=== PATIENT | female | born 1945 | race Caucasian/White ===

== ENCOUNTER 2017-02-03 14:47 | Emergency (ER) | payer OTHER ==
[~2017-02-03] VITALS: Ht 170.2 cm; Wt 75.0 kg
[~2017-02-03 14:47] MED LIST: BACL10TA PO; CYCL1TAB29 PO; DICY10CA12 PO; LEVO75TA3 PO; MOBI15TA PO; PERC5TAB12 PO; PROZ20CA11 PO; REST15CA PO; ZOFR4TAB PO; ZOVI400T PO
[2017-02-03 14:50] VITALS: BP 99/64; PULSE 84; RESP 18; TEMP 97.7; O2SAT 98
[2017-02-03 15:20] VITALS: BP 108/62; PULSE 74; RESP 18; TEMP 98; O2SAT 95
[2017-02-03] MEDS ORDERED: PANC1CAP9 PO (15:24)
[2017-02-03] MEDS ORDERED: SODIUM CHLORIDE 0.9% FLUSH 10 ML FLUSH IV FLUSH PRN (15:30)
--- NOTE | 2017-02-03 15:33 | PD ---
HPI Chief Complaint: Abdominal Pain Time Seen by Provider: 15:13 Travel History International Travel<30 days: No Contact w/Intl Traveler<30days: No Traveled to known affect area: No History of Present Illness HPI The patient was seen and examined in the presence of the nurse. She complains of abdominal pain. Also has some low back pain. Patient has had flares of these same symptoms for very long time. She's had extensive multiple workups that different centers. Recently hospitalized at [place] for the same. She's been to [facility]. She says she does not know why she has these pain spells. They usually resolve in a couple of days. She is on chronic narcotics from pain management for arthritis problems. Symptoms moderately severe. No alleviating factors. No fever or vomiting or diarrhea. PFSH Past Medical History Arthritis: Yes Autoimmune Disease: No Blood Disorders: No Anxiety: Yes Depression: Yes Heart Rhythm Problems: Yes (PT REPORTS HX OF ARRYTHMIAS) Cancer: No Cardiovascular Problems: Yes (ARRYTHMIA) High Cholesterol: Yes Chest Pain: No Congestive Heart Failure: No Cerebrovascular Accident: No Diabetes: Yes Patient Takes Glucophage: No Diminished Hearing: No Endocrine: Yes Gastrointestinal Disorders: Yes (HX REFLUX, BOWEL OBSTRUCTION, POST GASTRIC BYPASS) GERD: No Genitourinary: Yes (MORE FREQUENT UTI) Hepatitis: No Hiatal Hernia: Yes (REPAIRED X 2 BUT RECURRED) Immune Disorder: No Implanted Vascular Access Dvce: Yes Kidney Stones: Yes Musculoskeletal: Yes (ARTHRITIS, NECK PROBLEMS) Neurologic: Yes (NUMBNESS/TINGLING L LEG, HANDS AND FOOT) Psychiatric: Yes Reproductive: No Respiratory: Yes (PREVIOUS SLEEP APNEA PRIOR TO GASTRIC BYPASS) Immunizations Current: Yes Migraines: Yes Seizures: No Thyroid Disease: Yes Ulcer: No Influenza Vaccination: Yes PNEUMOCCOCAL Vaccine (Year): 1 ?: Not Menopausal: Yes Past Surgical History Abdominal Surgery: Yes (GASTRIC BYPASS 2006, CHOLECYSTECTOMY 2011) AICD: No Arteriovenous Shunt: No Body Medical Devices: LEFT KNEE REPLACEMENT Cardiac Surgery: No Cholecystectomy: Yes (December-DR. GARCIA) Ear Surgery: No Endocrine Surgery: No Eye Surgery: No Genitourinary Surgery: No Gynecologic Surgery: No Hysterectomy: Yes Insulin Pump: No Joint Replacement: Yes (L KNEE) Oral Surgery: No Pacemaker: No Thoracic Surgery: No Other Surgery: Yes (R GREAT TOE ) Social History Alcohol Use: No Tobacco Use: No Substance Use: No Allergies-Medications (Allergen,Severity, Reaction): Coded Allergies: Enalapril (Verified Allergy, Severe, COUGHING, 02/03/17) Reported Meds & Prescriptions Reported Meds & Active Scripts Active Reported Zenpep (Pancrelipase) 40,000-136,000-218,000 Units Cap 1 Cap PO TIDPC Zovirax (Acyclovir) 400 Mg Tab 400 Mg PO BID Zofran (Ondansetron HCl) 4 Mg Tab 4 Mg PO Q6HR PRN Restoril (Temazepam) 15 Mg Cap 15 Mg PO HS PRN Prozac (Fluoxetine HCl) 20 Mg Cap 20 Mg PO DAILY Percocet (Oxycodone-Acetaminophen) 5-325 mg Tab 1 Tab PO Q4H PRN Levothyroxine (Levothyroxine Sodium) 75 Mcg Tab 75 Mcg PO DAILY Baclofen 10 Mg Tab 10 Mg PO TID Review of Systems General / Constitutional: No: Fever Eyes: No: Visual changes HENT: No: Headaches Cardiovascular: No: Chest Pain or Discomfort Respiratory: No: Shortness of Breath Gastrointestinal: Positive: Abdominal Pain Genitourinary: No: Dysuria Musculoskeletal: Positive: Pain Skin: No Rash Neurologic: No: Weakness Psychiatric: No: Depression Endocrine: No: Polydipsia Hematologic/Lymphatic: No: Easy Bruising Physical Exam Narrative GENERAL: Well-nourished, well-developed patient in no apparent distress. SKIN: Focused skin assessment reveals no rash and nodules. Skin is Warm and dry. HEAD: Atraumatic. Normocephalic. EYES: Pupils equal and round. No scleral icterus. No injection or drainage. ENT: No nasal bleeding or discharge. Mucous membranes pink and moist. NECK: Trachea midline. No JVD. CARDIOVASCULAR: Regular rate and rhythm. No murmur appreciated. RESPIRATORY: No accessory muscle use. Clear to auscultation. Breath sounds equal bilaterally. GASTROINTESTINAL: Abdomen soft, non-tender, nondistended. Hepatic and splenic margins not palpable. MUSCULOSKELETAL: No obvious deformities. No clubbing. No cyanosis. No edema. NEUROLOGICAL: Awake and alert. No obvious cranial nerve deficits. Motor grossly within normal limits. Normal speech. PSYCHIATRIC: Appropriate mood and affect; insight and judgment normal. Data Data Last Documented VS Vital Signs Date Time Temp Pulse Resp B/P Pulse Ox O2 Delivery O2 Flow Rate FiO2 02/03/17 15:20 98.0 74 18 108/62 95 Room Air Orders Complete Blood Count With Diff (02/03/17 15:26) Comprehensive Metabolic Panel (02/03/17 15:26) Lipase (02/03/17 15:26) Iv Access Insert/Monitor (02/03/17 15:26) Sodium Chloride 0.9% Flush (Ns Flush) (02/03/17 15:30) Labs Laboratory Tests Test 02/03/17 15:30 White Blood Count 5.4 TH/MM3 Red Blood Count 4.95 MIL/MM3 Hemoglobin 15.1 GM/DL Hematocrit 45.6 % Mean Corpuscular Volume 92.1 FL Mean Corpuscular Hemoglobin 30.4 PG Mean Corpuscular Hemoglobin 33.0 % Concent Red Cell Distribution Width 14.1 % Platelet Count 237 TH/MM3 Mean Platelet Volume 8.6 FL Neutrophils (%) (Auto) 58.4 % Lymphocytes (%) (Auto) 29.3 % Monocytes (%) (Auto) 7.1 % Eosinophils (%) (Auto) 4.5 % Basophils (%) (Auto) 0.7 % Neutrophils # (Auto) 3.1 TH/MM3 Lymphocytes # (Auto) 1.6 TH/MM3 Monocytes # (Auto) 0.4 TH/MM3 Eosinophils # (Auto) 0.2 TH/MM3 Basophils # (Auto) 0.0 TH/MM3 CBC Comment DIFF FINAL Differential Comment Sodium Level 142 MEQ/L Potassium Level 4.1 MEQ/L Chloride Level 106 MEQ/L Carbon Dioxide Level 28.7 MEQ/L Anion Gap 7 MEQ/L Blood Urea Nitrogen 13 MG/DL Creatinine 0.70 MG/DL Estimat Glomerular Filtration 82 ML/MIN Rate Random Glucose 100 MG/DL Calcium Level 9.1 MG/DL Total Bilirubin 0.3 MG/DL Aspartate Amino Transf 23 U/L (AST/SGOT) Alanine Aminotransferase 29 U/L (ALT/SGPT) Alkaline Phosphatase 88 U/L Total Protein 6.9 GM/DL Albumin 3.6 GM/DL Lipase 71 U/L [facility] Medical Decision Making Medical Screen Exam Complete: Yes Emergency Medical Condition: Yes Medical Record Reviewed: Yes Differential Diagnosis Chronic pain, narcotic withdrawal, irritable bowel syndrome Narrative Course I have reviewed the patient's electronic medical record. He seen her multiple times for abdominal pain. 3 CT scans in the last year have been done IV placed CBC is normal Metabolic profile is normal LFTs are normal Lipase is normal I gave her dose of morphine and Zofran for symptom relief She is stable for outpatient follow-up with normal labs and normal vitals and a soft benign nontender abdomen Diagnosis Primary Impression: Abdominal pain in female Additional Instructions: The patient was advised to follow up with their physician and return if they worsen. Med/Other Pt SpecificInfo: Other Disposition: 01 DISCHARGE HOME Condition: Stable Tom Conley MD Feb 03, 2017 15:33
[2017-02-03 15:50] LABS: AUTOMATED NEUTROPHIL # 3.1 TH/MM3 (1.8-7.7); BASOPHIL % 0.7 % (0.0-2.0); EOSINOPHIL # 0.2 TH/MM3 (0-0.4); EOSINOPHIL % 4.5 % (0.0-4.0); HEMATOCRIT 45.6 % (35.0-46.0); HEMO FLAGS DIFF FINAL; LYMPH % 29.3 % (9.0-44.0); LYMPHOCYTE # 1.6 TH/MM3 (1.0-4.8); MEAN CELL VOLUME 92.1 FL (80.0-100.0); MEAN CORPUSCULAR HEMOGLOBIN 30.4 PG (27.0-34.0); MONO % 7.1 % (0.0-8.0); NEUT % 58.4 % (16.0-70.0); PLATELET COUNT 237 TH/MM3 (150-450); RED BLOOD COUNT 4.95 MIL/MM3 (4.00-5.30); RED CELL DISTRIBUTION WIDTH 14.1 % (11.6-17.2); WHITE BLOOD COUNT 5.4 TH/MM3 (4.0-11.0)
[2017-02-03 16:09] LABS: ALT (GPT) 29 U/L (10-53); ANION GAP 7 MEQ/L (5-15); AST (GOT) 23 U/L (15-37); BICARBONATE 28.7 MEQ/L (21.0-32.0); BLOOD UREA NITROGEN 13 MG/DL (7-18); CHLORIDE 106 MEQ/L (98-107); GLOMERULAR FILTRATION RATE 82 ML/MIN (>89); POTASSIUM 4.1 MEQ/L (3.5-5.1); SODIUM (NA) 142 MEQ/L (136-145)
[2017-02-03 16:11] LABS: ALKALINE PHOSPHATASE 88 U/L (45-117); TOTAL BILIRUBIN ADULT 0.3 MG/DL (0.2-1.0)
[2017-02-03] MEDS ORDERED: ONDANSETRON HCL 4 MG/2 ML VIAL IV ONE (16:45)
[2017-02-03] MEDS ORDERED: MORPHINE SULFATE 4 MG/ML INJ IV PUSH ONE (16:45)
[2017-02-03 16:50] VITALS: BP 121/57; PULSE 68; RESP 18; O2SAT 97
== END 2017-02-03 17:20 | disposition home or self-care (01) ==
LOC: NEPE 14:47
DX: R10.9 Unspecified abdominal pain (principal); M54.5 Low back pain
CPT/HCPCS: 80053; 83690; 85025; 96374; 96375; 99284; J2270; J2405

== ENCOUNTER 2017-02-03 19:37 | Observation (INO) | payer OTHER ==
[~2017-02-03] VITALS: Ht 170.2 cm; Wt 77.4 kg
[~2017-02-03 19:37] MED LIST changes: +PANC1CAP9 PO
[2017-02-03 19:44] VITALS: BP 121/68; PULSE 75; RESP 22; TEMP 98.1; O2SAT 99
--- NOTE | 2017-02-03 20:14 | PD ---
HPI Chief Complaint: GI Complaint Time Seen by Provider: 19:59 Travel History International Travel<30 days: No Contact w/Intl Traveler<30days: No Traveled to known affect area: No History of Present Illness HPI This 72-year-old female is complaining of abdominal pain. She's been having recurring bouts of abdominal pain for about 7 years. The attacks are quite severe. They started in the back and they radiate to the front. She has been admitted several times for them and has had multiple CAT scans. She has had various diagnoses including kidney stones, UTI, bowel obstruction. She was admitted at the hospital in [place] in December and the oven unloader they're told that she had pancreatic cancer. She has followed up with her oven unloader Dr. Castaneda and he has done an MRCP and told that she did not have pancreatic cancer. She went to [facility] earlier today because of this pain. Her lab work was unremarkable and she was given an injection of morphine and released. She says that when she got home she started having severe pain again. She says she used to get the episodes very sporadically maybe once every few months. The last few weeks she been having them almost every week. She was able to handle him at home with oral Percocet that did not work today [facility] Past Medical History Arthritis: Yes Autoimmune Disease: No Blood Disorders: No Anxiety: Yes Depression: Yes Heart Rhythm Problems: Yes (PT REPORTS HX OF ARRYTHMIAS) Cancer: No Cardiovascular Problems: Yes (ARRYTHMIA) High Cholesterol: Yes Chest Pain: No Congestive Heart Failure: No Cerebrovascular Accident: No Diabetes: Yes Patient Takes Glucophage: No Diminished Hearing: No Endocrine: Yes Gastrointestinal Disorders: Yes (HX REFLUX, BOWEL OBSTRUCTION, POST GASTRIC BYPASS) GERD: No Genitourinary: Yes (MORE FREQUENT UTI) Hepatitis: No Hiatal Hernia: Yes (REPAIRED X 2 BUT RECURRED) Immune Disorder: No Implanted Vascular Access Dvce: Yes Kidney Stones: Yes Musculoskeletal: Yes (ARTHRITIS, NECK PROBLEMS) Neurologic: Yes (NUMBNESS/TINGLING L LEG, HANDS AND FOOT) Psychiatric: Yes Reproductive: No Respiratory: Yes (PREVIOUS SLEEP APNEA PRIOR TO GASTRIC BYPASS) Immunizations Current: Yes Migraines: Yes Seizures: No Thyroid Disease: Yes Ulcer: No PNEUMOCCOCAL Vaccine (Year): 1 ?: Not Menopausal: Yes Past Surgical History Abdominal Surgery: Yes (GASTRIC BYPASS 2006, CHOLECYSTECTOMY 2011) AICD: No Arteriovenous Shunt: No Body Medical Devices: LEFT KNEE REPLACEMENT Cardiac Surgery: No Cholecystectomy: Yes (December-DR. GARCIA) Ear Surgery: No Endocrine Surgery: No Eye Surgery: No Genitourinary Surgery: No Gynecologic Surgery: No Hysterectomy: Yes Insulin Pump: No Joint Replacement: Yes (L KNEE) Oral Surgery: No Pacemaker: No Thoracic Surgery: No Other Surgery: Yes (R GREAT TOE ) Social History Alcohol Use: No Tobacco Use: No Substance Use: No Allergies-Medications (Allergen,Severity, Reaction): Coded Allergies: Enalapril (Verified Allergy, Severe, COUGHING, 02/03/17) Reported Meds & Prescriptions Reported Meds & Active Scripts Active Reported Zenpep (Pancrelipase) 40,000-136,000-218,000 Units Cap 1 Cap PO TIDPC Zovirax (Acyclovir) 400 Mg Tab 400 Mg PO BID Zofran (Ondansetron HCl) 4 Mg Tab 4 Mg PO Q6HR PRN Restoril (Temazepam) 15 Mg Cap 15 Mg PO HS PRN Prozac (Fluoxetine HCl) 20 Mg Cap 20 Mg PO DAILY Percocet (Oxycodone-Acetaminophen) 5-325 mg Tab 1 Tab PO Q4H PRN Levothyroxine (Levothyroxine Sodium) 75 Mcg Tab 75 Mcg PO DAILY Baclofen 10 Mg Tab 10 Mg PO TID Review of Systems General / Constitutional: No: Fever, Chills Eyes: No: Diploplia, Blurred Vision HENT: No: Headaches, Vertigo Cardiovascular: No: Chest Pain or Discomfort, Palpitations Respiratory: No: Cough, Shortness of Breath Gastrointestinal: Positive: Abdominal Pain, No: Vomiting, Diarrhea, Hematochezia Genitourinary: No: Urgency, Frequency Musculoskeletal: No: Myalgias Skin: No Rash Physical Exam Narrative GENERAL: Patient does appear uncomfortable with the pain SKIN: Focused skin assessment warm/dry. HEAD: Atraumatic. Normocephalic. EYES: Pupils equal and round. No scleral icterus. No injection or drainage. ENT: No nasal bleeding or discharge. Mucous membranes pink and moist. NECK: Trachea midline. No JVD. CARDIOVASCULAR: Regular rate and rhythm. No murmur appreciated. RESPIRATORY: No accessory muscle use. Clear to auscultation. Breath sounds equal bilaterally. GASTROINTESTINAL: Abdomen soft, non-tender, nondistended. Hepatic and splenic margins not palpable. Palpation does not aggravate her discomfort MUSCULOSKELETAL: No obvious deformities. No clubbing. No cyanosis. No edema. NEUROLOGICAL: Awake and alert. No obvious cranial nerve deficits. Motor grossly within normal limits. Normal speech. PSYCHIATRIC: Appropriate mood and affect; insight and judgment normal. Data Data Last Documented VS Vital Signs Date Time Temp Pulse Resp B/P Pulse Ox O2 Delivery O2 Flow Rate FiO2 02/03/17 21:54 71 18 111/65 97 Room Air 02/03/17 19:44 98.1 Orders Sodium Chlor 0.9% 1000 Ml Inj (Ns 1000 M (02/03/17 20:15) Ondansetron Inj (Zofran Inj) (02/03/17 20:15) Hydromorphone Pf Inj (Dilaudid Pf Inj) (02/03/17 20:15) Hydromorphone Pf Inj (Dilaudid Pf Inj) (02/03/17 21:00) Ct Abd/Pel W Iv Contrast(Rout) (02/03/17 ) Iohexol 350 Inj (Omnipaque 350 Inj) (02/03/17 21:39) MDM Medical Decision Making Medical Screen Exam Complete: Yes Emergency Medical Condition: Yes Medical Record Reviewed: Yes Differential Diagnosis Differential diagnosis includes bowel obstruction, chronic abdominal pain, ureteral colic Narrative Course Blood work from [place] was reviewed and is normal. She is complaining of increasing pain in that she has had multiple scans in the past that have ordered another one. There is no evidence for bowel obstruction. There is haziness involving the mesentery and pelvic complaints condition is slight fluid within the peritoneal cavity. This was present on a scan of July 2016. The patient has received 2 mg of Dilaudid and had recurrence of pain and additional milligram has been given and she is once again complaining of pain. Patient is having intractable abdominal pain Diagnosis Primary Impression: Intractable abdominal pain Matthew Brewer MD Feb 03, 2017 20:14
[2017-02-03] MEDS ORDERED: ONDANSETRON HCL 4 MG/2 ML VIAL IV PUSH ONE ×2 (20:15→22:30)
[2017-02-03] MEDS ORDERED: SODIUM CHLOR 0.9% 1000 ML INJ 1,000 ML IV SCH (20:15)
[2017-02-03] MEDS ORDERED: HYDROmorphone HCL PF 2 MG/ML VIAL IV PUSH ONE (20:15)
[2017-02-03 20:34] VITALS: BP 127/58; PULSE 87; RESP 20; O2SAT 96
[2017-02-03] MEDS ORDERED: HYDROmorphone HCL PF 1 MG/ML VIAL IV PUSH ONE (21:00)
[2017-02-03] MEDS ORDERED: IOHEXOL 350 MG/ML 10 ML VIAL (for RAD DIAG) IV ONE (21:39)
[2017-02-03 21:54] VITALS: BP 111/65; PULSE 71; RESP 18; O2SAT 97
--- NOTE | 2017-02-03 21:59 | RADHPO ---
EXAM DATE/TIME: 02/03/2017 21:16 [place] COMPARISON: CT ABDOMEN & PELVIS W CONTRAST, August 21, 2016, 19:06. CT ABDOMEN & PELVIS W/O CONTRAST, August 09, 2015, 10:24. INDICATIONS : Left abdominal pain. Nausea. IV CONTRAST: 100 cc Omnipaque 350 (iohexol) IV ORAL CONTRAST: No oral contrast ingested. RADIATION DOSE: 12.16 CTDIvol (mGy) MEDICAL HISTORY : Diabetes mellitus type 2. Hernia, hiatal. SURGICAL HISTORY : Gastric bypass. Cholecystectomy.Hysterectomy.Hiatal hernia. ENCOUNTER: Initial ACUITY: 1 day PAIN SCALE: 7/10 LOCATION: Left upper quadrant TECHNIQUE: Volumetric scanning of the abdomen and pelvis was performed. Using automated exposure control and adjustment of the mA and/or kV according to patient size, radiation dose was kept as low as reasonably achievable to obtain optimal diagnostic quality images. FINDINGS: CT Abdomen: The liver, spleen, pancreas, kidneys, left adrenal are unremarkable. There is no evidence for any appreciable pathological adenopathy, or bowel obstruction. There is haziness involving the mesentery and pelvic fat planes in addition to slight fluid within the peritoneal cavity. There is ev idence for prior cholecystectomy. Small hiatal hernia is present. Approximate 1.8 cm right adrenal no dule is seen probably an adenoma not changed since 2014. CT pelvis: There is no evidence for mass, abscess formation, or any significant adenopathy within the pelvis. The appendix appears intact without definite signs of appendicitis. There are scattered dive rticuli mainly in the sigmoid colon without definite signs of diverticulitis. CONCLUSION: 1. Right adrenal adenoma not changed since 2014. 2. Hiatal hernia not changed. 3. There is slight ascites with mesenteric congestion not significantly changed since 07/2016. oNrm Shannon MD on February 03, 2017 at 21:52 Board Certified Radiologist. This report was verified electronically.
[2017-02-03] MEDS: SODIUM CHLOR 0.9% 1000 ML INJ 1,000 ML IV SCH (22:27)
[2017-02-03] MEDS ORDERED: ONDANSETRON HCL 4 MG/2 ML VIAL IV PUSH PRN (22:30)
[2017-02-03 23:52] VITALS: BP 116/64; PULSE 74; RESP 18; O2SAT 97
[2017-02-04 00:10] VITALS: BP 134/72; PULSE 75; RESP 18; TEMP 97.2; O2SAT 98
[2017-02-04] MEDS: HYDROmorphone HCL PF 1 MG/ML VIAL IV PUSH PRN ×2 (01:05→06:55)
[2017-02-04 08:00] VITALS: BP 125/70; PULSE 69; RESP 16; TEMP 98.4; O2SAT 97
[2017-02-04] MEDS: SODIUM CHLOR 0.9% 1000 ML INJ 1,000 ML IV SCH (08:30)
[2017-02-04] MEDS ORDERED: TEMAZEPAM 15 MG CAP PO PRN (11:00)
[2017-02-04 12:00] VITALS: BP 151/78; PULSE 80; RESP 18; TEMP 98.7; O2SAT 99
[2017-02-04] MEDS ORDERED: BACLOFEN 10 MG TAB PO SCH (13:00)
[2017-02-04] MEDS ORDERED: LIPASE/PROTEASE/AMYLASE (24,000/76,000/120,000) CAP PO SCH (13:30)
--- NOTE | 2017-02-04 14:21 | HHI.HP ---
HPI Service [facility] Primary Care Physician Polo Patten MD Admission Diagnosis INTRACTABLE ABDOMINAL PAIN Diagnoses: Travel History International Travel<30 Days: No Contact w/Intl Traveler <30 Da: No Traveled to Known Affected Are: No History of Present Illness 72-year-old female with a history of obesity, diabetes, obstructive sleep apnea which resolved after gastric bypass, as well as chronic degenerative disc disease with chronic neck and back pain, who presents with episode of recurrent back pain radiating to abdomen. Patient has had multiple episodes of this on average once per month for the past year. Beginning 02/03 in the morning, patient woke up with constant crushing low thoracic back pain radiating to the epigastrium, with no exacerbating or relieving factors, except for Dilaudid. Patient visited the ER in the morning, however labs were normal. She subsequently returned with intractable pain. Patient seen the morning of 02/04. Pain has resolved. She says she feels like going home. CT abdomen with no acute findings, however does have mesenteric haziness. She will follow-up with gastroenterology as outpatient for further workup. Review of Systems Performed and negative except for history of present illness and past medical history Past Family Social History Past Medical History Depression Sleep disorder Pancreatic insufficiency Chronic neck and low back pain due to degenerative disc disease Herpes on chronic suppression Hypothyroidism. Reported history of arrhythmia Reported hyperlipidemia Frequent UTIs History of diabetes and obstructive sleep apnea resolved with gastric bypass. Past Surgical History Left knee surgery Gastric bypass in 2006 Hysterectomy Cholecystectomy 2012 History of hiatal hernia repair Left knee surgery Gastric bypass in 2006 Hysterectomy Cholecystectomy 2012 History of hiatal hernia repair Reported Medications Reported Meds & Active Scripts Active Reported Zenpep (Pancrelipase) 40,000-136,000-218,000 Units Cap 1 Cap PO TIDPC Zovirax (Acyclovir) 400 Mg Tab 400 Mg PO BID Zofran (Ondansetron HCl) 4 Mg Tab 4 Mg PO Q6HR PRN Restoril (Temazepam) 15 Mg Cap 15 Mg PO HS PRN Prozac (Fluoxetine HCl) 20 Mg Cap 20 Mg PO DAILY Percocet (Oxycodone-Acetaminophen) 5-325 mg Tab 1 Tab PO Q4H PRN Levothyroxine (Levothyroxine Sodium) 75 Mcg Tab 75 Mcg PO DAILY Baclofen 10 Mg Tab 10 Mg PO TID Allergies: Coded Allergies: Enalapril (Verified Allergy, Severe, COUGHING, 02/03/17) Family History Mother with stroke passing away at age 82. Father unknown Social History Nonsmoker, nondrinker, denies illicit drugs. Physical Exam Vital Signs Vital Signs Date Time Temp Pulse Resp B/P Pulse Ox O2 Delivery O2 Flow Rate FiO2 02/04/17 12:00 98.7 80 18 151/78 99 02/04/17 08:00 98.4 69 16 125/70 97 02/04/17 07:25 20 02/04/17 00:16 74 18 97 02/04/17 00:10 97.2 75 18 134/72 98 02/03/17 23:52 74 18 116/64 97 Room Air 02/03/17 21:54 71 18 111/65 97 Room Air 02/03/17 21:21 20 02/03/17 20:46 20 02/03/17 20:34 87 20 127/58 96 Room Air 02/03/17 19:44 98.1 75 22 121/68 99 Physical Exam GENERAL: This is a well-nourished, well-developed patient, in no apparent distress. alert and oriented 3. Pleasant. SKIN: No rashes, ecchymoses or lesions. Cool and dry. HEAD: Atraumatic. Normocephalic. No temporal or scalp tenderness. EYES: Pupils equal round and reactive. Extraocular motions intact. No scleral icterus. No injection or drainage. ENT: Nose without bleeding, purulent drainage or septal hematoma. Throat without erythema, tonsillar hypertrophy or exudate. Uvula midline. Airway patent. NECK: Trachea midline. No JVD or lymphadenopathy. Supple, nontender, no meningeal signs. CARDIOVASCULAR: Regular rate and rhythm without murmurs, gallops, or rubs. RESPIRATORY: Clear to auscultation. Breath sounds equal bilaterally. No wheezes , rales, or rhonchi. GASTROINTESTINAL: Abdomen soft, non-tender, nondistended. No hepato-splenomegaly , or palpable masses. No guarding. MUSCULOSKELETAL: Extremities without clubbing, cyanosis, or edema. No joint tenderness, effusion, or edema noted. No calf tenderness. Negative Homans sign bilaterally. No spinous process tenderness. NEUROLOGICAL: Awake and alert. Cranial nerves II through XII intact. Motor and sensory grossly within normal limits. Five out of 5 muscle strength in all muscle groups. Normal speech. Laboratory Laboratory Tests Test 02/04/17 13:05 Amylase Level 42 Imaging Last Impressions Abdomen/Pelvis CT 02/03/17 0000 Signed Impressions: Service Date/Time: January 21:16 - CONCLUSION: 1. Right adrenal adenoma not changed since 2014. 2. Hiatal hernia not changed. 3. There is slight ascites with mesenteric congestion not significantly changed since 07/2016. Norm Shannon MD Assessment and Plan Assessment and Plan //Acute onset abdominal back pain radiating to abdomen -CT abdomen with no acute findings. She does have hazy mesentery, will need follow-up with gastroenterology. -Resolved. -Suspect this is secondary to thoracic radiculopathy given patient's history of degenerative disc disease. -Discussed with gastroenterology, and patient can be discharged home with follow -up gastroenterology after labs are drawn. Chronic depression, sleep disorder, pancreatic sufficiency, hypothyroidism, herpes on suppression, all other chronic issues. Continue home medications. Code Status full code Discussed Condition With patient, nurse, bar catcher Rashaad Zuniga MD Feb 04, 2017 14:21
--- NOTE | 2017-02-04 16:47 | MB ---
cc: DALILA BAY MD, MOHAMMADREZA MD MORALES, GERALDINO DATE OF CONSULTATION: 02/04/2017 ROOM NUMBER: [id number] REFERRING PHYSICIAN: Dr. Mcknight REASON FOR CONSULTATION: For recurring abdominal pain. HISTORY OF PRESENT ILLNESS: This is a 72 year-old female known to the [facility] with a history of recurring chronic abdominal pain. The patient was seen a little over a month ago for chronic recurring abdominal pain. The patient states that this started in 2009. It typically starts in the Morning or often wakes her up and usually starts in her mid back and radiates around the abdomen, around the periumbilical region like a band. The pain will become quite severe and is associated with nausea but no vomiting. Typically she will have an attack about once per month but lately they have been occurring more frequently. Usually she will go to the emergency room and get analgesics and within a few hours the pain subsides and she goes home. She had an attack yesterday morning and went to the [facility] and was subsequently sent home but then the pain came back so she came to the [facility] and was admitted. She has had multiple CAT scans and about a year ago had a MRI and most recently had a MRCP. She does have pancreas Divisum, CAT scans have shown some nonspecific edema involving the mesentery and a small amount of free fluid. A recent fecal elastase was abnormally low and consistent with chronic pancreatic insufficiency. She was started on pancreatic enzymes but states that they gave her diarrhea and have not prevented these attacks of pain. The patient had a Ashu-en-Y gastric bypass surgery in 2006. She has had upper endoscopy and colonoscopy by [facility]. SOCIAL HISTORY: The patient is . She has never smoked, she does not use alcohol. She does drink two cups of coffee daily. MEDICATIONS: Temazepam 30 mg daily. Acyclovir 400 mg for ten days as needed. Baclofen 10 mg three times per day. Fluoxetine 20 mg daily. Lovastatin 20 mg in the evening. Oxycodone 10 mg as needed for her abdominal pain. ALLERGIES NO KNOWN DRUG ALLERGIES PAST SURGICAL HISTORY: Knee replacement surgery. Cholecystectomy. Total hysterectomy Hernia repair. Ashu-en-Y gastric bypass surgery. Arthroplasty on her right great toe. PAST MEDICAL HISTORY: Osteoarthritis Hypertension Hyperlipidemia Depression. Morbid obesity FAMILY HISTORY: Mother has had colon polyps, hypertension, stroke and heart disease. Fathers history is unknown. One brother of motor vehicle accident at age 33, she has a sister with diabetes. No family history of colon cancer. REVIEW OF SYSTEMS No cardiopulmonary or genitourinary complaints. No unexplained weight loss. No fever or chills. PHYSICAL EXAMINATION: IN GENERAL: Reveals a well developed female in no acute distress. VITAL SIGNS: Blood pressure 125/70, pulse 69 and regular, respirations 60 and nonlabored. Temperature 98.4. HEAD, EYES, EARS, NOSE, AND THROAT: sclera are anicteric NECK: The neck is supple without masses. LUNGS: Clear to auscultation. HEART: The heart sounds are regular without murmur, gallop or rub. ABDOMEN: The abdomen is soft, nondistended, no significant tenderness, no palpable masses. Bowel sounds are present. EXTREMITIES: No cyanosis, clubbing or edema. SKIN: Warm and dry, no skin rashes. NEUROLOGIC: She is alert and oriented a pleasant affect and no gross motor deficits. LABORATORY FINDINGS: There is no lab work available. RADIOLOGIC: CT scan shows a right adrenal adenoma not change since 2014 hiatal hernia and some slight ascites with mesenteric congestion not significantly changed since July 2016. With regards to her lab work; yesterday morning at the main hospital. She did have a CBC which was unremarkable and serum chemistries which were also unremarkable including normal LFTs and a normal lipase. Her creatinine was 0.70. IMPRESSION: 1. Chronic recurring abdominal pain. 2. History of pancreas divisum, suspected pancreatic exocrine insufficiency. 3. Status post Ashu-en-Y gastric bypass surgery. PLAN Complicated patient with a difficult problem of recurrent abdominal pain but no specific etiology other than this mesenteric edema. She may have some type of vasculitis or chronic mesenteric ischemia. Unclear if there is component of chronic pancreatitis. She does have an appointment to be seen at [facility] on March 09. Will check a sed rate and C1 esterase inhibitor. Will review her CT scan and most recent CT scan and consider possible CT angiogram or MR angiogram. I also would like her to see a surgeon to get their opinion regarding diagnostic laparoscopy. Her pain is much better and she would like to try eating and if does okay which she would prefer to go home so I can arrange for his see a surgeon as an outpatient if necessary. Will follow with you. MD Carol Kohli /10:30 AM /4:19 PM
[2017-02-04 20:31] LABS: HEMOGLOBIN A1a 1.3 %; HEMOGLOBIN Ao 84.7 %; HEMOGLOBIN F 1.2 %; HEMOGLOBIN LA1C 2.1 %; HEMOGLOBIN P3 3.7 %
[2017-02-04] MEDS ORDERED: ACYCLOVIR 200 MG CAP PO SCH (21:00)
[2017-02-05] MEDS ORDERED: LEVOTHYROXINE SODIUM 75 MCG TAB PO SCH (06:00)
[2017-02-05] MEDS ORDERED: FLUoxetine HCL 20 MG CAP PO SCH (09:00)
== END 2017-02-04 15:12 | disposition home or self-care (01) ==
LOC: PHED 19:37 → PHEDA 22:22 → PH3B 02-04 00:10
PROVIDERS: ADMIT Internal Medicine; ATTEND Internal Medicine
DX: R10.9 Unspecified abdominal pain (principal); E11.9 Type 2 diabetes mellitus without complications; I10 Essential (primary) hypertension; M54.5 Low back pain; M54.2 Cervicalgia; G89.29 Other chronic pain; G47.33 Obstructive sleep apnea (adult) (pediatric); F32.9 Major depressive disorder, single episode, unspecified; E03.9 Hypothyroidism, unspecified; K86.89 Other specified diseases of pancreas; F41.9 Anxiety disorder, unspecified; Z98.84 Bariatric surgery status; Z96.652 Presence of left artificial knee joint; Z88.8 Allergy status to other drugs, medicaments and biological substances
CPT/HCPCS: 74177; 82150; 83036; 83883; 86140; 96361; 96374; 96375; 99285; G0378; J1170; J2405; J7030; Q9967; 80053; 83690; 85025; J2270

== ENCOUNTER 2017-02-08 18:19 | Observation (INO) | payer OTHER ==
[~2017-02-08] VITALS: Ht 170.2 cm; Wt 74.3 kg
[~2017-02-08 18:19] MED LIST changes: -CYCL1TAB29 PO; -DICY10CA12 PO; -MOBI15TA PO
[2017-02-08 18:30] VITALS: BP 154/82; PULSE 81; RESP 18; TEMP 98.3; O2SAT 97
[2017-02-08 19:15] VITALS: BP 144/72; PULSE 80; RESP 22; O2SAT 100
--- NOTE | 2017-02-08 19:33 | PD ---
HPI Chief Complaint: GI Complaint Time Seen by Provider: 19:17 Travel History International Travel<30 days: No Contact w/Intl Traveler<30days: No Traveled to known affect area: No History of Present Illness HPI The patient is a 72-year-old female with history of chronic recurring abdominal pain. She was seen and admitted on the seventh of this month for this and MRI and CAT scans showed only nonspecific edema involving the mesentery. She may have chronic pancreatic insufficiency. She had a Ashu-en-Y gastric bypass surgery in 2006. She was seen in consultation by Dr. Wilder. Lipase and amylase testing have been normal. She has been taking Percocet 10 and took 2 of these tablets this morning when her pain began. She denies vomiting any blood or any melanotic or bloody stools. She comes in wanting something for the pain. She has had multiple CT scans. She was admitted to the [facility] on her last admission. PFSH Past Medical History Hx Anticoagulant Therapy: No Arthritis: Yes Autoimmune Disease: No Blood Disorders: No Anxiety: Yes Depression: Yes Heart Rhythm Problems: Yes (PT REPORTS HX OF ARRYTHMIAS) Cancer: No Cardiovascular Problems: Yes (ARRYTHMIA) High Cholesterol: Yes Chemotherapy: No Chest Pain: No Congestive Heart Failure: No Cerebrovascular Accident: No Diabetes: Yes Diminished Hearing: No Endocrine: Yes Gastrointestinal Disorders: Yes (HX REFLUX, BOWEL OBSTRUCTION, POST GASTRIC BYPASS) GERD: No Genitourinary: Yes (MORE FREQUENT UTI) Hepatitis: No Hiatal Hernia: Yes (REPAIRED X 2 BUT RECURRED) Immune Disorder: No Implanted Vascular Access Dvce: Yes Kidney Stones: Yes Medical other: No Musculoskeletal: Yes (ARTHRITIS, NECK PROBLEMS) Neurologic: Yes (NUMBNESS/TINGLING L LEG, HANDS AND FOOT) Psychiatric: Yes Reproductive: No Respiratory: Yes (PREVIOUS SLEEP APNEA PRIOR TO GASTRIC BYPASS) Immunizations Current: Yes Migraines: Yes Seizures: No Thyroid Disease: Yes Ulcer: No Influenza Vaccination: Yes PNEUMOCCOCAL Vaccine (Year): 1 Menopausal: Yes Past Surgical History Abdominal Surgery: Yes (GASTRIC BYPASS 2006, CHOLECYSTECTOMY 2011) AICD: No Arteriovenous Shunt: No Body Medical Devices: LEFT KNEE REPLACEMENT Cardiac Surgery: No Cholecystectomy: Yes (December-DR. GARCIA) Ear Surgery: No Endocrine Surgery: No Eye Surgery: No Genitourinary Surgery: No Gynecologic Surgery: No Hysterectomy: Yes Insulin Pump: No Joint Replacement: Yes (L KNEE) Oral Surgery: No Pacemaker: No Thoracic Surgery: No Other Surgery: Yes (R GREAT TOE ) Social History Alcohol Use: No Tobacco Use: No Substance Use: No Allergies-Medications (Allergen,Severity, Reaction): Coded Allergies: Enalapril (Verified Allergy, Severe, COUGHING, 02/08/17) Reported Meds & Prescriptions Reported Meds & Active Scripts Active Reported Zenpep (Pancrelipase) 40,000-136,000-218,000 Units Cap 1 Cap PO TIDPC Zovirax (Acyclovir) 400 Mg Tab 400 Mg PO BID Zofran (Ondansetron HCl) 4 Mg Tab 4 Mg PO Q6HR PRN Prozac (Fluoxetine HCl) 20 Mg Cap 20 Mg PO DAILY Percocet (Oxycodone-Acetaminophen) 5-325 mg Tab 1 Tab PO Q4H PRN Levothyroxine (Levothyroxine Sodium) 75 Mcg Tab 75 Mcg PO DAILY Baclofen 10 Mg Tab 10 Mg PO TID Review of Systems Except as stated in HPI: all other systems reviewed are Neg Physical Exam Narrative GENERAL: The patient is alert, oriented 3 in moderate to severe apparent distress. She got out of bed and was lying on the floor at one point. SKIN: Focused skin assessment warm/dry. HEAD: Atraumatic. Normocephalic. EYES: Pupils equal and round. No scleral icterus. No injection or drainage. ENT: No nasal bleeding or discharge. Mucous membranes pink and moist. NECK: Trachea midline. No JVD. CARDIOVASCULAR: Regular rate and rhythm. No murmur appreciated. RESPIRATORY: No accessory muscle use. Clear to auscultation. Breath sounds equal bilaterally. GASTROINTESTINAL: Abdomen soft, with slight discomfort in the periumbilical region to direct palpation, nondistended. Hepatic and splenic margins not palpable. No guarding or rebound is present. MUSCULOSKELETAL: No obvious deformities. No clubbing. No cyanosis. No edema. NEUROLOGICAL: Awake and alert. No obvious cranial nerve deficits. Motor grossly within normal limits. Normal speech. PSYCHIATRIC: Appropriate mood and affect; insight and judgment normal. Data Data Last Documented VS Vital Signs Date Time Temp Pulse Resp B/P Pulse Ox O2 Delivery O2 Flow Rate FiO2 02/08/17 20:30 18 02/08/17 20:17 75 169/80 97 Room Air 02/08/17 18:30 98.3 Orders Complete Blood Count With Diff (02/08/17 19:34) Comprehensive Metabolic Panel (02/08/17 19:34) Lipase (02/08/17 19:34) Urinalysis - C+S If Indicated (02/08/17 19:34) Ct Abd/Pel W Iv Contrast(Rout) (02/08/17 19:34) Iv Access Insert/Monitor (02/08/17 19:34) Ecg Monitoring (02/08/17:34) Oximetry (02/08/17 19:34) Sodium Chlor 0.9% 1000 Ml Inj (Ns 1000 M (02/08/17 19:45) Ondansetron Inj (Zofran Inj) (02/08/17 19:45) Hydromorphone Pf Inj (Dilaudid Pf Inj) (02/08/17 19:45) Amylase (02/08/17 19:47) Hydromorphone Pf Inj (Dilaudid Pf Inj) (02/08/17 21:00) Place In Observation (02/08/17 ) Vital Signs (Adult) Q4H (02/08/17 21:28) Activity Oob With Assistance (02/08/17 21:28) Machine Lead Burner / Telemetry .CONTINUOUS (02/08/17 21:28) Diet Npo (02/09/17 Breakfast) Sodium Chloride 0.9% Flush (Ns Flush) (02/08/17 21:30) Sodium Chloride 0.9% Flush (Ns Flush) (02/09/17 09:00) Basic Metabolic Panel (Bmp) (02/09/17 06:00) Complete Blood Count With Diff (02/09/17 06:00) Naloxone Inj (Narcan Inj) (02/08/17 21:30) Ondansetron Inj (Zofran Inj) (02/08/17 21:30) Hydromorphone Pf Inj (Dilaudid Pf Inj) (02/08/17 21:30) Labs Laboratory Tests Test 02/08/17 19:47 White Blood Count 5.0 TH/MM3 Red Blood Count 4.91 MIL/MM3 Hemoglobin 14.6 GM/DL Hematocrit 45.7 % Mean Corpuscular Volume 93.0 FL Mean Corpuscular Hemoglobin 29.8 PG Mean Corpuscular Hemoglobin 32.0 % Concent Red Cell Distribution Width 13.6 % Platelet Count 256 TH/MM3 Mean Platelet Volume 8.9 FL Neutrophils (%) (Auto) 52.1 % Lymphocytes (%) (Auto) 35.6 % Monocytes (%) (Auto) 7.9 % Eosinophils (%) (Auto) 3.7 % Basophils (%) (Auto) 0.7 % Neutrophils # (Auto) 2.6 TH/MM3 Lymphocytes # (Auto) 1.8 TH/MM3 Monocytes # (Auto) 0.4 TH/MM3 Eosinophils # (Auto) 0.2 TH/MM3 Basophils # (Auto) 0.0 TH/MM3 CBC Comment DIFF FINAL Differential Comment Sodium Level 142 MEQ/L Potassium Level 4.7 MEQ/L Chloride Level 103 MEQ/L Carbon Dioxide Level 28.2 MEQ/L Anion Gap 11 MEQ/L Blood Urea Nitrogen 14 MG/DL Creatinine 0.83 MG/DL Estimat Glomerular Filtration 68 ML/MIN Rate Random Glucose 99 MG/DL Calcium Level 9.6 MG/DL Total Bilirubin 0.4 MG/DL Aspartate Amino Transf 48 U/L (AST/SGOT) Alanine Aminotransferase 35 U/L (ALT/SGPT) Alkaline Phosphatase 99 U/L Total Protein 7.8 GM/DL Albumin 3.8 GM/DL Amylase Level 40 U/L Lipase 80 U/L MDM Medical Decision Making Medical Screen Exam Complete: Yes Emergency Medical Condition: Yes Medical Record Reviewed: Yes Interpretation(s) The CBC is normal, the white count is 5000. The complete metabolic profile shows a GFR of 68, AST of 48 but is otherwise normal. The lipase and amylase are normal. Differential Diagnosis Chronic pancreatitis, chronic abdominal pain etiology undetermined, drug seeking behavior, urinary stoneunlikely, narcotic dependence Narrative Course The patient has chronic, recurrent abdominal pain etiology undetermined. She continually asked for pain medicines and insists that she be admitted for pain. The patient may be getting narcotic dependence. Diagnosis Primary Impression: Recurrent abdominal pain Polo Patten MD Feb 08, 2017 19:33
[2017-02-08] MEDS ORDERED: ONDANSETRON HCL 4 MG/2 ML VIAL IV ONE (19:45)
[2017-02-08] MEDS ORDERED: HYDROmorphone HCL PF 1 MG/ML VIAL IVP ONE ×2 (19:45→21:00)
[2017-02-08] MEDS: SODIUM CHLOR 0.9% 1000 ML INJ 1,000 ML IV SCH ×2 (19:54→21:09)
[2017-02-08 19:56] LABS: AUTOMATED NEUTROPHIL # 2.6 TH/MM3 (1.8-7.7); BASOPHIL % 0.7 % (0.0-2.0); EOSINOPHIL # 0.2 TH/MM3 (0-0.4); EOSINOPHIL % 3.7 % (0.0-4.0); HEMATOCRIT 45.7 % (35.0-46.0); HEMO FLAGS DIFF FINAL; LYMPH % 35.6 % (9.0-44.0); LYMPHOCYTE # 1.8 TH/MM3 (1.0-4.8); MEAN CORPUSCULAR HEMOGLOBIN 29.8 PG (27.0-34.0); MONO % 7.9 % (0.0-8.0); NEUT % 52.1 % (16.0-70.0); PLATELET COUNT 256 TH/MM3 (150-450); RED BLOOD COUNT 4.91 MIL/MM3 (4.00-5.30); RED CELL DISTRIBUTION WIDTH 13.6 % (11.6-17.2)
[2017-02-08 20:06] LABS: CHLORIDE 103 MEQ/L (98-107); SODIUM (NA) 142 MEQ/L (136-145)
[2017-02-08 20:13] LABS: ANION GAP 11 MEQ/L (5-15); BICARBONATE 28.2 MEQ/L (21.0-32.0); BLOOD UREA NITROGEN 14 MG/DL (7-18)
[2017-02-08 20:14] LABS: AMYLASE 40 U/L (25-115)
[2017-02-08 20:16] LABS: ALT (GPT) 35 U/L (10-53); AST (GOT) 48 U/L (15-37); GLOMERULAR FILTRATION RATE 68 ML/MIN (>89)
[2017-02-08 20:17] VITALS: BP 169/80; PULSE 75; RESP 18; O2SAT 97
[2017-02-08 20:17] LABS: TOTAL BILIRUBIN ADULT 0.4 MG/DL (0.2-1.0)
[2017-02-08 20:19] LABS: ALKALINE PHOSPHATASE 99 U/L (45-117)
[2017-02-08 20:30] LABS: POTASSIUM 4.7 MEQ/L (3.5-5.1)
[2017-02-08] MEDS ORDERED: SODIUM CHLORIDE 0.9% FLUSH 10 ML FLUSH IV FLUSH PRN (21:30)
[2017-02-08] MEDS ORDERED: ONDANSETRON HCL 4 MG/2 ML VIAL IV PUSH PRN (21:30)
[2017-02-08] MEDS ORDERED: NALOXONE HCL 0.4 MG/ML AMP IV PRN (21:30)
[2017-02-08] MEDS ORDERED: IOHEXOL 350 MG/ML 10 ML VIAL (for RAD DIAG) IV ONE (21:33)
[2017-02-08] MEDS: SODIUM CHLORIDE 0.9% FLUSH 10 ML FLUSH IV FLUSH SCH ×2 (21:44→22:47)
--- NOTE | 2017-02-08 21:48 | RADHPO ---
EXAM DATE/TIME: 02/08/2017 21:13 [place] COMPARISON: CT ABDOMEN & PELVIS W CONTRAST, May 04, 2016, 11:43. CT ABDOMEN & PELVIS W/O CONTRAST, August 09, 2015, 10:24. CT ABDOMEN & PELVIS W CONTRAST, February 03, 2017, 21:16. INDICATIONS : Bilateral lower quadrant pain. Back pain. Nausea. IV CONTRAST: 100 cc Omnipaque 350 (iohexol) IV ORAL CONTRAST: No oral contrast ingested. RADIATION DOSE: 11.45 CTDIvol (mGy) MEDICAL HISTORY : Diabetes mellitus type 2. Hernia, hiatal. SURGICAL HISTORY : Gastric bypass. Cholecystectomy.Hysterectomy.Hiatal hernia. ENCOUNTER: Subsequent ACUITY: 4 - 6 days PAIN SCALE: 7/10 LOCATION: Bilateral lower quadrant Back. TECHNIQUE: Volumetric scanning of the abdomen and pelvis was performed. Using automated exposure control and ad justment of the mA and/or kV according to patient size, radiation dose was kept as low as reasonably achievable to obtain optimal diagnostic quality images. FINDINGS: LOWER LUNGS: The visualized lower lungs are clear. A hiatal hernia is again noted. LIVER: Homogeneous density without lesion. There is no dilation of the biliary tree. The patient is status post cholecystectomy. SPLEEN: Normal size without lesion. PANCREAS: Stable and atrophic in appearance. KIDNEYS: Normal in size and shape. There is no mass, stone or hydronephrosis. ADRENAL GLANDS: There is a stable mass in the right adrenal gland. VASCULAR: There is no aortic aneurysm. BOWEL/MESENTERY: There are remote post surgical changes again noted consistent with partial gastrectomy. There is traffic signal repairer racheal increased density and induration in the upper central mesentery which surrounds the region the pa ncreatic head and celiac axis which appears mildly more prominent. ABDOMINAL WALL: Within normal limits. RETROPERITONEUM: There is no masslike adenopathy. There is chronic increased density and appearance inflammatory [place] es surrounding portions the retroperitoneum which then extends down along both iliac chains. This anneliese ears mildly more prominent as well. BLADDER: No wall thickening or mass. REPRODUCTIVE: Within normal limits. INGUINAL: There is no lymphadenopathy or hernia. MUSCULOSKELETAL: Within normal limits for patient age. CONCLUSION: 1. The previously noted chronic density and induration surrounding the upper central mesentery includ ing the celiac axis and pancreatic head region appears mildly more prominent. This is of unclear sign ificance but could represent inflammation. There is similar apparent inflammation surrounding portion s of the retroperitoneum which extends along both iliac chains. 2. Stable small right adrenal mass. 3. Status post cholecystectomy. 4. Postsurgical changes involving the stomach. 5. Small hiatal hernia. Murphy Mendoza MD on February 08, 2017 at 21:38 Board Certified Radiologist. This report was verified electronically.
[2017-02-08 22:11] VITALS: BP 159/81; PULSE 74; RESP 22; O2SAT 100
[2017-02-08 22:22] LABS: BLOOD, URINE NEG (NEG); GLUCOSE,URINE NEG (NEG); KETONE, URINE 15 mg/dL (NEG); NITRITE,URINE NEG (NEG)
[2017-02-08] MEDS: HYDROmorphone HCL PF 1 MG/ML VIAL IV PUSH PRN (22:26)
[2017-02-08 22:45] LABS: URINE COLOR YELLOW (YELLW/STRAW)
[2017-02-08 22:51] LABS: COMMENT (UR) CULT NOT INDICATED; CULTURE IF INDICATED CULT NOT INDICATED; SQUAMOUS EPITHELIAL CELL URINE > 8 /hpf (0-5)
[2017-02-08 23:30] VITALS: BP 178/95; PULSE 79; RESP 20; TEMP 96.9; O2SAT 100
[2017-02-08 23:38] VITALS: PULSE 79
[2017-02-09] MEDS: TEMAZEPAM 15 MG CAP PO PRN ×2 (00:11→23:20)
[2017-02-09] MEDS: HYDROmorphone HCL PF 1 MG/ML VIAL IV PUSH PRN ×4 (02:26→15:21)
[2017-02-09 04:00] VITALS: BP 110/60; PULSE 91; RESP 18; TEMP 98.4; O2SAT 95
[2017-02-09 06:31] LABS: AUTOMATED NEUTROPHIL # 4.7 TH/MM3 (1.8-7.7); BASOPHIL % 0.2 % (0.0-2.0); HEMATOCRIT 40.5 % (35.0-46.0); HEMO FLAGS DIFF FINAL; LYMPH % 10.2 % (9.0-44.0); LYMPHOCYTE # 0.6 TH/MM3 (1.0-4.8); MEAN CELL VOLUME 91.5 FL (80.0-100.0); MEAN CORPUSCULAR HEMOGLOBIN 30.3 PG (27.0-34.0); MEAN CORPUSCULAR HGB CONC 33.1 % (32.0-36.0); MONO % 7.2 % (0.0-8.0); NEUT % 82.4 % (16.0-70.0); PLATELET COUNT 209 TH/MM3 (150-450); RED BLOOD COUNT 4.42 MIL/MM3 (4.00-5.30); RED CELL DISTRIBUTION WIDTH 13.6 % (11.6-17.2); WHITE BLOOD COUNT 5.7 TH/MM3 (4.0-11.0)
[2017-02-09 07:07] LABS: BICARBONATE 25.9 MEQ/L (21.0-32.0); POTASSIUM 3.9 MEQ/L (3.5-5.1)
[2017-02-09 08:00] VITALS: BP 103/65; PULSE 78; RESP 19; TEMP 97.9; O2SAT 96
--- NOTE | 2017-02-09 09:28 | PD.CONS ---
GI Consult GI Consult ASSESSMENT/PLAN: 1. abdominal pain-hypogastric/periumbilical 2. abnormal CT scan 3. hx of pancreatic divisum/pancreatitis 4. history of peptic ulcer disease and adenomatous colon polyps 5. hx of exocrine pancreatic insufficiency 6. minimally abnormal LFTs PLAN: 1. MRA of abdomen to rule out intestinal angina 2. patient is taken NSAIDs-needs upper endoscopy 3. considerable surgical evaluation for laparoscopy to further evaluate the mesentery and retroperitoneal area and check for adhesions as a cause of her abdominal pain 4. outpatient colonoscopy with Dr. Castaneda when possible 5. followup with Dr. Castaneda in the office in regards to the minimally abnormal LFTs It was a pleasure seeing Hannah Will Thank you for this consult. Entered by: Tree Reid MD Feb 09, 2017 09:28
[2017-02-09 12:00] VITALS: BP 129/70; PULSE 72; RESP 20; TEMP 96.8; O2SAT 96
--- NOTE | 2017-02-09 12:26 | MB ---
cc: PATRICE ZUNIGA MD, GARY MORALES PASRICHA, SUNIL P. M.D. DATE OF CONSULTATION 02/09/2017 REASON FOR CONSULTATION I was asked to see this patient at the request of Dr. Zuniga for evaluation of abdominal pain. HISTORY The patient is a pleasant 72-year-old white female. She carries a diagnosis of pancreatic divisum, possible chronic pancreatitis, exocrine pancreatic insufficiency, and she also has a remote history of a gastric ulcer and adenomatous colon polyps. Recently she has been in and out of the hospital several times for abdominal pain. At one point, one point in December of this year, she had a CT scan which showed possible acute pancreatitis and the possibility of a pancreatic head mass. An endoscopic ultrasound was considered, but apparent she had some form of gastric bypass surgery and it was not feasible to do this. She was then seen in the office and the patient had an MRI of the abdomen which revealed pancreatic divisum and a mildly enlarged common bile duct, but otherwise the pancreas, if anything, was mildly atrophic. The gallbladder was surgically absent. An MRCP was also done and this revealed the bile duct was unremarkable and liver is unremarkable also as well as the pancreas - again it showed pancreatic divisum. She was suppose to be seen at [facility] for further evaluation of this situation, but she has not done this as yet. The last time she is was seen in the office late last month, the patient was encouraged to get pancreatic enzymes. Apparently yesterday she developed similar abdominal pain - its hypogastric periumbilical crampy in nature. It radiated to her back. She came to the emergency room. ER doctor called me and said she is in a quite significant amount of pain - apparently she took Advil and Percocet without much relief. In the hospital, she was given narcotics and she still not better, but pain is better controlled.. She was resting comfortably in bed of note. She denies any nausea, vomiting, or heartburn. No melena, hematochezia, diarrhea, or constipation. No fever or chills. She does take Advil at times, but no other NSAIDs. PAST MEDICAL HISTORY Significant for: 1. Gastric ulcer 2. Colon polyps 3. Intermittent gastroesophageal reflux disease 4. Pancreatitis taken 5. Pancreatic divisum 6. Exocrine pancreatic insufficiency 7. Sleep apnea 8. Dyslipidemia 9. Depression 10. Anxiety 11. Some type of thyroid disease. 12. Migraines PAST SURGICAL HISTORY Includes: 1. Knee replacement surgery 2. Cholecystectomy 3. Hysterectomy 4. Gastric bypass. 5. She may have had some type of hiatal hernia repair, but she is not quite sure. ALLERGIES According to our records in the office, she has no known drug allergies, however ER reports that she is ALLERGIC TO ENALAPRIL WHICH CAUSED COUGHING. FAMILY HISTORY Not significant for colon cancer, colon polyps, pancreatitis, gallbladder disease, liver disease, asthma, TB or peptic ulcer disease. SOCIAL HISTORY Does not currently smoke or drink. REVIEW OF SYSTEMS Intermittent weight loss. No fever or chills. CARDIOPULMONARY: No chest pain, palpations or shortness of breath. GASTROINTESTINAL: Please see above, otherwise a negative ten-point of systems. Regards to abdominal pain, it has no rhyme or reason - no provocative or palliative features. MEDICATIONS As an outpatient: 1. Dominic Pep 2. Zovirax (Acyclovir) 3. Zofran 4. Prozac 5. Percocet 6. Levothyroxine 7. Baclofen In the hospital include: 1. Restoril 2. Narcan 3. Zofran 4. Dilaudid PHYSICAL EXAMINATION VITAL SIGNS: Blood pressure is 103/65, pulse is 78, respiratory rate of 19, temperature is 97.9. GENERAL: She is an elderly white female who appears to be her stated age. She appears to be resting comfortably at this time in no acute GI distress. HEAD, EYES, EARS, NOSE, AND THROAT: Her pupils equal and react to light. No obvious scleral icterus. Oropharynx had dental caries. No dental lesions or Candidal lesions. Hearing was intact. NECK: Supple, no thyromegaly or lymphadenopathy. LUNGS: Clear to auscultation and percussion. HEART: Regular rate and rhythm. No gross murmurs heard. ABDOMEN: Soft, nondistended with good bowel sounds. No organomegaly or masses. She had mild diffuse tenderness, but no rebound tenderness. There is no guarding or rebound. EXTREMITIES: No clubbing, cyanosis or edema. NEUROLOGIC: Cranial nerves II-XII are grossly intact. No gross sensory deficits. SKIN: Was warm and dry. LABORATORY DATA She had a CT scan of the abdomen and pelvis done yesterday which revealed there is some surrounding upper central mesentery induration and chronic density including the celiac axis and pancreatic head region which apparently is mildly more prominent than before. They could not rule out inflammation.. There is also some inflammation surrounding the retroperitoneum which extends to both iliac chains. There is a small right renal mass. She is status post cystectomy. There are some postoperative changes of the stomach and she has a small hiatal hernia. LABORATORY Revealed her CBC was entirely normal with a hemoglobin of 14.6, hematocrit of 45.7, white blood cell count of 5000, MCV 93, platelet count of 256. Her CMP is also quite good. Her SGOT is slightly elevated at 48, SGPT of 35, alk phos of 99, amylase of 80, lipase of 40, albumin of 3.8 was normal. BUN 14, creatinine 0.83, total bilirubin 0.4 and her calcium is 9.6. IMPRESSIONS 1. Abdominal pain, hypogastric periumbilical - this is similar to the pain she had in the past. It is somewhat crampy and has no rhyme or reason. It did radiate to her back. Her physical exam was relatively benign and at that time she has basically pain out of proportion to the physical findings. I cannot rule out intestinal angina. She may have chronic pancreatitis. Whether she has any retroperitoneal malignancy is unclear. Reported she had a pancreatic mass in the past, but not seen on subsequent imaging studies. 2. Abnormal CT scan - she has some induration of the mesentery and retroperitoneal area. This could be sequelae from previous inflammation. Whether it is related to lymphoma or some other process is unclear. 3. The patient has a history of pancreatic divisum and pancreatitis. 4. History of peptic ulcer disease and adenomatous colon polyps. She does take NSAIDs and she is overdue for a colonoscopy. 5. History of exocrine pancreatic insufficiency - she has been taking pancreatic enzymes. 6. Minimally abnormal transaminases. PLAN 1. The fact that she has pain out of proportion to physical findings, I will proceed with an MRA of the abdomen to evaluate for intestinal angina. 2. The patient also take NSAIDs. She needs an upper endoscopy. We did talk about the indications, risks, complications benefits and limitations including the risks of bleeding, perforation, infection, arrhythmias and the small possibly of . Her last upper endoscopy according to our record was in 2005. 3. Outpatient colonoscopy by Dr. Castaneda when possible for colon cancer surveillance. 4. Followup with Dr. Castaneda in regards to the minimally abnormal LFTs. 5. Please consider surgical evaluation for laparoscopy to further evaluate the mesentery and retroperitoneal area and check for any adhesions or malignancies as a cause of her abdominal pain. MD JOHANNA Stover/LEX /10:20 AM /12:01 PM MTDSanty
--- NOTE | 2017-02-09 13:02 | HHI.HP ---
[facility] Service [facility] Primary Care Physician Polo Patten MD Admission Diagnosis recurrent abdominal pain etiology undetermined Diagnoses: Chief Complaint: Abdominal pain Travel History International Travel<30 Days: No Contact w/Intl Traveler <30 Da: No Traveled to Known Affected Are: No History of Present Illness 72-year-old female known to me from previous admission, history of obesity, diabetes, gastric bypass, chronic degenerative disc disease however recently seen here for recurrence of intermittent abdominal/back pain. She Yesterday with aching abdominal pain, subsequently radiating to back. Nausea but no vomiting. This resolved with Dilaudid in the ER. She denies any chest pain or shortness of breath. Denies any fevers or chills. Says she otherwise feels all right. Previous admission this past week for same presentation. CT abdomen with hazy mesentery, with planned follow-up outpatient gastroenterology Past Family Social History Past Medical History Sleep disorder Pancreatic insufficiency Chronic neck and low back pain due to degenerative disc disease Herpes on chronic suppression Hypothyroidism. Reported history of arrhythmia Reported hyperlipidemia Frequent UTIs History of diabetes and obstructive sleep apnea resolved with gastric bypass. Past Surgical History Left knee surgery Gastric bypass in 2006 Hysterectomy Cholecystectomy 2012 History of hiatal hernia repair Reported Medications Reported Meds & Active Scripts Active Reported Zenpep (Pancrelipase) 40,000-136,000-218,000 Units Cap 1 Cap PO TIDPC Zovirax (Acyclovir) 400 Mg Tab 400 Mg PO BID Zofran (Ondansetron HCl) 4 Mg Tab 4 Mg PO Q6HR PRN Prozac (Fluoxetine HCl) 20 Mg Cap 20 Mg PO DAILY Percocet (Oxycodone-Acetaminophen) 5-325 mg Tab 1 Tab PO Q4H PRN Levothyroxine (Levothyroxine Sodium) 75 Mcg Tab 75 Mcg PO DAILY Baclofen 10 Mg Tab 10 Mg PO TID Allergies: Coded Allergies: Enalapril (Verified Allergy, Severe, COUGHING, 02/08/17) Family History Mother with stroke passing away at age 82. Father unknown. Social History Nonsmoker, nondrinker, denies illicit drugs. Physical Exam Vital Signs Vital Signs Date Time Temp Pulse Resp B/P Pulse Ox O2 Delivery O2 Flow Rate FiO2 02/09/17 12:00 96.8 72 20 129/70 96 02/09/17 11:16 18 02/09/17 08:00 97.9 78 19 103/65 96 02/09/17 04:00 98.4 91 18 110/60 95 02/08/17 23:38 79 02/08/17 23:30 96.9 79 20 178/95 100 02/08/17 22:11 74 22 159/81 100 Room Air 02/08/17 21:40 18 02/08/17 20:30 18 02/08/17 20:17 75 18 169/80 97 Room Air 02/08/17 19:15 80 22 144/72 100 Room Air 02/08/17 18:30 98.3 81 18 154/82 97 Physical Exam GENERAL: This is a well-nourished, well-developed patient, in no apparent distress. Alert and oriented 3 SKIN: No rashes, ecchymoses or lesions. Cool and dry. HEAD: Atraumatic. Normocephalic. No temporal or scalp tenderness. EYES: Pupils equal round and reactive. Extraocular motions intact. No scleral icterus. No injection or drainage. ENT: Nose without bleeding, purulent drainage or septal hematoma. Throat without erythema, tonsillar hypertrophy or exudate. Uvula midline. Airway patent. NECK: Trachea midline. No JVD or lymphadenopathy. Supple, nontender, no meningeal signs. CARDIOVASCULAR: Regular rate and rhythm without murmurs, gallops, or rubs. RESPIRATORY: Clear to auscultation. Breath sounds equal bilaterally. No wheezes , rales, or rhonchi. GASTROINTESTINAL: Abdomen soft, non-tender, nondistended. No hepato-splenomegaly , or palpable masses. No guarding. MUSCULOSKELETAL: Extremities without clubbing, cyanosis, or edema. No joint tenderness, effusion, or edema noted. No calf tenderness. Negative Homans sign bilaterally. NEUROLOGICAL: Awake and alert. Cranial nerves II through XII intact. Motor and sensory grossly within normal limits. Five out of 5 muscle strength in all muscle groups. Normal speech. Laboratory Laboratory Tests Test 02/08/17 02/08/17 02/09/17 19:47 22:10 05:50 White Blood Count 5.0 5.7 Red Blood Count 4.91 4.42 Hemoglobin 14.6 13.4 Hematocrit 45.7 40.5 Mean Corpuscular Volume 93.0 91.5 Mean Corpuscular Hemoglobin 29.8 30.3 Mean Corpuscular Hemoglobin 32.0 33.1 Concent Red Cell Distribution Width 13.6 13.6 Platelet Count 256 209 Mean Platelet Volume 8.9 8.3 Neutrophils (%) (Auto) 52.1 82.4 Lymphocytes (%) (Auto) 35.6 10.2 Monocytes (%) (Auto) 7.9 7.2 Eosinophils (%) (Auto) 3.7 0.0 Basophils (%) (Auto) 0.7 0.2 Neutrophils # (Auto) 2.6 4.7 Lymphocytes # (Auto) 1.8 0.6 Monocytes # (Auto) 0.4 0.4 Eosinophils # (Auto) 0.2 0.0 Basophils # (Auto) 0.0 0.0 CBC Comment DIFF FINAL DIFF FINAL Differential Comment Sodium Level 142 145 Potassium Level 4.7 3.9 Chloride Level 103 111 Carbon Dioxide Level 28.2 25.9 Anion Gap 11 8 Blood Urea Nitrogen 14 10 Creatinine 0.83 0.56 Estimat Glomerular Filtration 68 107 Rate Random Glucose 99 122 Calcium Level 9.6 7.9 Total Bilirubin 0.4 Aspartate Amino Transf 48 (AST/SGOT) Alanine Aminotransferase 35 (ALT/SGPT) Alkaline Phosphatase 99 Total Protein 7.8 Albumin 3.8 Amylase Level 40 Lipase 80 Urine Color YELLOW Urine Turbidity SLIGHT Urine pH 8.0 Urine Specific Alsey 1.027 Urine Protein NEG Urine Glucose (UA) NEG Urine Ketones 15 Urine Occult Blood NEG Urine Nitrite NEG Urine Bilirubin NEG Urine Leukocyte Esterase LARGE Urine WBC 6-8 Urine Squamous Epithelial > 8 Cells Urine Amorphous Sediment MOD Microscopic Urinalysis Comment CULT NOT INDICATED Result Diagram: 02/09/17 0550 02/09/17 0550 Imaging Last Impressions Abdomen/Pelvis CT 02/08/171933 Signed Impressions: Service Date/Time: Wednesday, February 08, 2017 21:13 - CONCLUSION: 1. The previously noted chronic density and induration surrounding the upper central mesentery including the celiac axis and pancreatic head region appears mildly more prominent. This is of unclear significance but could represent inflammation. There is similar apparent inflammation surrounding portions of the retroperitoneum which extends along both iliac chains. 2. Stable small right adrenal mass. 3. Status post cholecystectomy. 4. Postsurgical changes involving the stomach. 5. Small hiatal hernia. Murphy Mendoza MD Assessment and Plan Assessment and Plan //Acute on chronic intermittent abdominal pain -CT abdomen as before with no acute findings, hazy mesentery as before. -Improved with Dilaudid. Due to recurrent nature, gastroenterology consulted. MRA abdomen pending. -Discussed with gastroenterology. Plan for EGD in the morning of 02/10. Nothing by mouth at midnight. //Chronic depression, sleep disorder, and creatinine insufficiency, hypothyroidism, herpes on suppression, all other chronic issues. Continue home medications. Prophylaxis .Hold anticoagulation due to EGD. Discussed Condition With discussed with patient, nurse, cdl truck driver Rashaad Zuniga MD Feb 09, 2017 13:02
[2017-02-09 16:00] VITALS: BP 154/69; PULSE 76; RESP 20; TEMP 97.4; O2SAT 99
[2017-02-09] MEDS ORDERED: GADODIAMIDE PF 287 MG/ML 10 ML VIAL (for RAD MRI) IV ONE (16:56)
--- NOTE | 2017-02-09 17:36 | RADHPO ---
EXAM DATE/TIME: 02/09/2017 16:16 [place] COMPARISON: CT ABDOMEN & PELVIS W CONTRAST, August 21, 2016, 19:06. CT ABDOMEN & PELVIS W CONTRAST, February 08, 2017, 21:13. INDICATIONS : Abdominal pain. Ischemic bowel. CONTRAST: 30 cc Omniscan (gadodiamide) IV MEDICAL HISTORY : None. SURGICAL HISTORY : Total knee replacement, left. Cholecystectomy. Hysterectomy. ENCOUNTER: Initial ACUITY: 2 day PAIN SCORE: 4/10 LOCATION: abdomen TECHNIQUE: Bolus infused MR angiography was performed. The data was postprocessed with a variety of visualization algorithms including full-volume maximum-intensity projection, multiplanar sliding thin slab reformation, and curved planar reformation. FINDINGS: ABDOMINAL AORTA: The lumen is smooth without significant narrowing or aneurysmal dilatation. The proximal celiac and superior mesenteric arteries are patent and normal in diameter. RENAL ARTERIES: There are solitary renal arteries bilaterally. No evidence of ostial or segmenta l stenosis. KIDNEYS: There is symmetric renal size. There is homogeneous enhancement in the parenchyma. BIFURCATION: Normal. RIGHT PELVIS: The right common iliac, internal iliac, and external iliac vessels are patent witho ut luminal irregularity. LEFT PELVIS: The left common iliac, internal iliac, and external iliac vessels are patent and wit hout luminal irregularity. RETROPERITONEUM: Small right adrenal gland nodule is confirmed. Soft tissue mass in the retroperi toneum encasing the celiac and superior mesenteric arteries is identified but less conspicuous. CONCLUSION: Normal appearing abdominal aorta and aortic branches. No evidence of significant stenosis or vasculopathy. Small right adrenal gland nodule. Stable mesenteric process as described on recent CT. Byron Cordova MD on February 09, 2017 at 17:27 Board Certified Radiologist. This report was verified electronically.
[2017-02-09 20:00] VITALS: BP 149/78; PULSE 70; RESP 18; TEMP 98.6; O2SAT 96
[2017-02-09 20:10] VITALS: PULSE 70
[2017-02-09] MEDS ORDERED: ACETAMINOPHEN 325 MG TAB PO PRN (21:45)
[2017-02-09] MEDS ORDERED: CALCIUM CARBONATE 500 MG CHEWABLE TAB CHEW PRN (21:45)
[2017-02-09] MEDS ORDERED: GLUCAGON 1 MG/ML VIAL OTHER PRN (21:45)
[2017-02-09] MEDS ORDERED: ALUMINUM/MAGNESIUM/SIMETH 30 ML CUP PO PRN (21:45)
[2017-02-09] MEDS ORDERED: MAGNESIUM HYDROXIDE SUSP 30 ML CUP PO PRN (21:45)
[2017-02-09] MEDS ORDERED: DEXTROSE 50% IN WATER 50 ML VIAL(D50) IV PUSH PRN (21:45)
[2017-02-10] VITALS (8 sets, daily range): BP systolic 129–158; BP diastolic 68–85; PULSE 63–70; RESP 16–20; TEMP 95.7–98.5; O2SAT 96–99
[2017-02-10] MEDS: LEVOTHYROXINE SODIUM 75 MCG TAB PO SCH (05:43)
[2017-02-10] MEDS: oxyCODONE/ACETAMINOPHEN 5 MG/325 MG TAB PO PRN ×2 (05:44→11:04)
[2017-02-10] MEDS: INSULIN ASPART SUPPLEMENTAL SCALE SQ SCH ×4 (05:47→21:00)
[2017-02-10] MEDS ORDERED: PROPOFOL 200 MG/20 ML AMP IV ONE (07:19)
--- NOTE | 2017-02-10 07:53 | HHI.GIFU ---
GI Follow-up Note Consult Follow-up EGD (full note dictated-[id number]) 1. Esophagus-negative 2. Stomach-evidence of a gastric bypass surgery (minimal gastric [id number] ). No PUD. 3. Jejunum-negative PLAN: 1. Consult General Surgery Eval for laparoscopy (for mass near celiac axis and blaire mesentery and continued abd pain) 2. D/W Dr. Varner (he will order consult) It was a pleasure seeing Hannah Will Thank you for this consult. Entered by: Tree Reid MD Feb 10, 2017 07:53
[2017-02-10] MEDS: BACLOFEN 10 MG TAB PO SCH ×3 (08:25→17:52)
[2017-02-10] MEDS: FLUoxetine HCL 20 MG CAP PO SCH (08:26)
[2017-02-10] MEDS: ACYCLOVIR 200 MG CAP PO SCH ×2 (08:26→21:00)
[2017-02-10] MEDS: SODIUM CHLORIDE 0.9% FLUSH 10 ML FLUSH IV FLUSH SCH ×2 (08:27→21:32)
[2017-02-10] MEDS: LIPASE/PROTEASE/AMYLASE (24,000/76,000/120,000) CAP PO SCH ×3 (08:43→17:52)
[2017-02-10] MEDS: DOCUSATE SODIUM 100 MG CAP PO PRN ×2 (08:45→21:31)
[2017-02-10] MEDS ORDERED: PERC10TA27 PO (13:47)
--- NOTE | 2017-02-10 15:18 | HHI.PR ---
Subjective Remarks Patient seen and examined today with Dr. Varner. Patient states that she is not expressing any pain at this time. However she knows that it will return. Case was discussed with GI this morning who indicates that she did have endoscopy done does have a small stomach however no acute abnormalities.MRA of the abdomen does show a soft tissue mass surrounding her celiac artery. Recommending general surgery consultation for possible laparoscopic procedure Objective Vitals Vital Signs Date Time Temp Pulse Resp B/P Pulse Ox O2 Delivery O2 Flow Rate FiO2 02/10/17 12:00 97.0 70 16 139/77 99 02/10/17 08:00 66 16 146/82 99 02/10/17 07:44 68 15 139/65 94 02/10/17 07:34 98.0 66 16 136/73 96 02/10/17 06:48 98.5 66 18 147/78 98 02/10/17 04:00 95.7 66 18 147/78 98 02/10/17 00:00 97.1 66 18 133/68 96 02/09/17 20:10 70 02/09/17 20:00 98.6 70 18 149/78 96 02/09/17 16:01 18 02/09/17 16:00 97.4 76 20 154/69 99 I/O 02/09/17 02/09/17 02/09/17 02/10/17 02/10/17 02/10/17 07:00 15:00 23:00 07:00 15:00 23:00 Intake Total 1000 ml 360 ml 60 ml 780 ml Balance 1000 ml 360 ml 60 ml 780 ml Intake Oral 0 ml 360 ml 60 ml 480 ml IV Total 1000 ml Other 300 ml # Voids 2 2 # Bowel Movements 0 Result Diagram: 02/09/17 0550 02/09/17 0550 Imaging Last Impressions Abdomen Magnetic Resonance Angio 02/09/17 0000 Signed Impressions: Service Date/Time: Thursday, February 09, 2017 16:16 - CONCLUSION: Normal appearing abdominal aorta and aortic branches. No evidence of significant stenosis or vasculopathy. Small right adrenal gland nodule. Stable mesenteric process as described on recent CT. Byron Cordova MD Abdomen/Pelvis CT 02/08/17 1934 Signed Impressions: Service Date/Time: Wednesday, February 08, 2017 21:13 - CONCLUSION: 1. The previously noted chronic density and induration surrounding the upper central mesentery including the celiac axis and pancreatic head region appears mildly more prominent. This is of unclear significance but could represent inflammation. There is similar apparent inflammation surrounding portions of the retroperitoneum which extends along both iliac chains. 2. Stable small right adrenal mass. 3. Status post cholecystectomy. 4. Postsurgical changes involving the stomach. 5. Small hiatal hernia. Murphy Mendoza MD Objective Remarks GENERAL: Well-developed, well-nourished, in no acute distress. alert and orientated HEENT: Head is normocephalic without any lesions or masses noted. Facial features are symmetric. Eyes: Extraocular muscles are intact. Conjunctivae were clear. NECK: Supple without any masses. Trachea midline no deviation. No JVD, CARDIAC: Regular rhythm, regular rate. S1/S2 are heard. No murmurs gallops or rubs. LUNGS: Clear to auscultation bilaterally. No wheeze, rhonchi or rales. No use of accessory muscles on inspiration or expiration. ABDOMEN: Soft, nontender. Nondistended. Bowel sounds heard in all 4 quadrants. No organomegaly or masses. Negative rebound, negative guarding EXTREMITIES: No edema, pulses are equal bilaterally. No cyanosis or clubbing NEUROLOGY: Mood and affect appear appropriate. Cranial nerves II through XII grossly intact. Moving all extremities, speech is clear Urinary Catheter: No A/P Assessment and Plan Acute on chronic recurrent intermittent abdominal pain: Patient presents with recurrent abdominal pain. Patient had multiple admissions for this with extensive workups. CT scan was done of the abdomen which does note a chronic density and induration surrounding the upper central mesentery occluding the celiac's axis and pancreatic head region appearing mildly more prominent. There is similar compared inflammation surrounding portions of the retroperitoneum which extends along the iliac chains. MRA of the abdomen was performed which did show normal-appearing abdominal aorta and aortic branches. However, there does appear to be soft tissue mass in the retroperitoneum encasing the celiac and superior mesenteric arteries. Patient Care Technician was consulted for recommendations and patient did undergo EGD today and he notified us that there was no acute abnormalities. Recommending general surgery consultation for the soft tissue mass, likely will require laparoscopic surgery. We'll continue pain control this time. We'll maintain full liquid diet until seen by surgery. Mild hyperglycemia. Monitor Stable right adrenal gland mass. Outpatient follow-up Chronic depression, sleep disorder, and creatinine insufficiency, hypothyroidism , herpes on suppression, all other chronic issues. Home medications were continued DVT prevention: Sequential compression devices, avoid chemical prophylaxis time due to possible procedure Written by Tom Patten PA-C, acting as scribe for Dr. Varner on 02/10/17 at 1400. The documentation accurately reflects the work and decisions performed face-to- face by Dr. Varner on 02/10/17 at 1400. All or portions of this note were transcribed by scribe Tom Patten PA-C,. I, Dr. Alejandro Varner personally performed the history, physical exam, and medical decision making; and confirmed the accuracy of the information in the transcribed note. Authenticated by Dr. Alejandro Varner on 02/10/17 at 16:37. Tom Patten Feb 10, 2017 15:18 Alejandro Varner MD Feb 10, 2017 16:40
[2017-02-10] MEDS: oxyCODONE/ACETAMINOPHEN 10 MG/325 MG TAB PO PRN ×2 (15:26→21:31)
--- NOTE | 2017-02-10 16:44 | HHI.DCPOC ---
Discharge Care Plan Diagnosis: (1) Intractable abdominal pain (2) Recurrent abdominal pain Your Health Problems Are: Difficulty with ADL Exercise Tolerance Goals to Promote Your Health * To prevent worsening of your condition and complications * To maintain your health at the optimal level Directions to Meet Your Goals Take your medications as prescribed Follow your dietary instruction Follow activity as directed Keep your appointments as scheduled Take your immunizations and boosters as scheduled If your symptoms worsen call your PCP, if no PCP go to Urgent Care Center or Emergency Room Smoking is Dangerous to Your Health. Avoid second hand smoke Call the 24-hour hour crisis hotline for domestic abuse at Alejandro Varner MD Feb 10, 2017 16:44
[2017-02-10] MEDS: TEMAZEPAM 15 MG CAP PO PRN (22:59)
[2017-02-11] VITALS: BP 127/75; PULSE 59; RESP 20; TEMP 97.6; O2SAT 95
[2017-02-11] MEDS: oxyCODONE/ACETAMINOPHEN 10 MG/325 MG TAB PO PRN ×2 (03:53→10:51)
[2017-02-11 04:00] VITALS: BP 137/88; PULSE 68; RESP 20; TEMP 96.8; O2SAT 98
[2017-02-11] MEDS: LEVOTHYROXINE SODIUM 75 MCG TAB PO SCH (05:41)
[2017-02-11] MEDS: INSULIN ASPART SUPPLEMENTAL SCALE SQ SCH ×2 (05:45→11:00)
[2017-02-11 08:00] VITALS: BP 141/85; PULSE 72; RESP 16; TEMP 98.4; O2SAT 97
[2017-02-11] MEDS: FLUoxetine HCL 20 MG CAP PO SCH (08:19)
[2017-02-11] MEDS: BACLOFEN 10 MG TAB PO SCH ×2 (08:19→13:01)
[2017-02-11] MEDS: ACYCLOVIR 200 MG CAP PO SCH (08:20)
[2017-02-11] MEDS: LIPASE/PROTEASE/AMYLASE (24,000/76,000/120,000) CAP PO SCH ×3 (08:20→13:26)
[2017-02-11] MEDS: SODIUM CHLORIDE 0.9% FLUSH 10 ML FLUSH IV FLUSH SCH (09:00)
--- NOTE | 2017-02-11 09:31 | HHI.PR ---
Subjective Remarks Patient seen and examined today with Dr. Varner. Patient states that she is without any abdominal pain. Has not returned at this time. Still awaiting surgical consultation for recommendations. Objective Vitals Vital Signs Date Time Temp Pulse Resp B/P Pulse Ox O2 Delivery O2 Flow Rate FiO2 02/11/17 08:00 98.4 72 16 141/85 97 02/11/17 04:53 18 02/11/17 04:00 96.8 68 20 137/88 98 02/11/17 00:00 97.6 59 20 127/75 95 02/10/17 20:00 97.6 67 20 142/85 96 02/10/17 20:00 63 02/10/17 16:00 97.0 66 18 158/80 99 02/10/17 12:00 97.0 70 16 139/77 99 I/O 02/10/17 02/10/17 02/10/17 02/11/17 02/11/17 02/11/17 07:00 15:00 23:00 07:00 15:00 23:00 Intake Total 60 ml 780 ml 1080 ml 60 ml Balance 60 ml 780 ml 1080 ml 60 ml Intake Oral 60 ml 480 ml 1080 ml 60 ml Other 300 ml # Voids 2 7 1 # Bowel Movements 0 0 Result Diagram: 02/09/17 0550 02/10/172114 Objective Remarks GENERAL: Well-developed, well-nourished, in no acute distress. alert and orientated HEENT: Head is normocephalic without any lesions or masses noted. Facial features are symmetric. Eyes: Extraocular muscles are intact. Conjunctivae were clear. NECK: Supple without any masses. Trachea midline no deviation. No JVD, CARDIAC: Regular rhythm, regular rate. S1/S2 are heard. No murmurs gallops or rubs. LUNGS: Clear to auscultation bilaterally. No wheeze, rhonchi or rales. No use of accessory muscles on inspiration or expiration. ABDOMEN: Soft, nontender. Nondistended. Bowel sounds heard in all 4 quadrants. No organomegaly or masses. Negative rebound, negative guarding EXTREMITIES: No edema, pulses are equal bilaterally. No cyanosis or clubbing NEUROLOGY: Mood and affect appear appropriate. Cranial nerves II through XII grossly intact. Moving all extremities, speech is clear Urinary Catheter: No Vascular Central Line Catheter: No A/P Assessment and Plan Acute on chronic recurrent intermittent abdominal pain: Patient presents with recurrent abdominal pain. Patient had multiple admissions for this with extensive workups. CT scan was done of the abdomen which does note a chronic density and induration surrounding the upper central mesentery occluding the celiac's axis and pancreatic head region appearing mildly more prominent. There is similar compared inflammation surrounding portions of the retroperitoneum which extends along the iliac chains. MRA of the abdomen was performed which did show normal-appearing abdominal aorta and aortic branches. However, there does appear to be soft tissue mass in the retroperitoneum encasing the celiac and superior mesenteric arteries. Care Coordinator was consulted for recommendations and patient did undergo EGD today and he notified us that there was no acute abnormalities. Recommending general surgery consultation for the soft tissue mass, likely will require laparoscopic surgery. We'll continue pain control this time. We'll maintain full liquid diet until seen by surgery. Chronic depression, sleep disorder, and creatinine insufficiency, hypothyroidism , herpes on suppression, all other chronic issues. Home medications were continued DVT prevention: Sequential compression devices, avoid chemical prophylaxis time due to possible procedure Written by Tom Patten, acting as scribe for Dr. Varner on 02/11/17 at 09: 30. This note was transcribed by scribe Tom Patten. I, Dr. Alejandro Varner personally performed the history, physical exam, and medical decision making; and confirmed the accuracy of the information in the transcribed note. Authenticated by Dr. Alejandro Varner on 02/11/17 at 13:42. Tom Patten Feb 11, 2017 09:31 Alejandro Varner MD Feb 11, 2017 13:42
[2017-02-11] MEDS: DOCUSATE SODIUM 100 MG CAP PO PRN (11:23)
[2017-02-11 12:00] VITALS: BP 131/75; PULSE 67; RESP 16; TEMP 97.7; O2SAT 97
--- NOTE | 2017-02-11 13:41 | HHI.DS ---
Discharge Summary Admission Date Feb 08, 2017 at 21:32 Discharge Date: Feb 11, 2017 Admitting Diagnosis recurrent abdominal pain etiology undetermined (1) Intractable abdominal pain ICD Code: R10.9 Diagnosis: Principal (2) Recurrent abdominal pain ICD Code: R10.9 Diagnosis: Principal Procedures 72-year-old female with recurrent intractable abdominal pain who represented the hospital again because of abdominal pain. Patient is followed on a regular basis by Dr. Castaneda. Patient was evaluated in emergency department and recommended hospitalization for further evaluation management. Patient's laboratory studies initial workup did not display any acute abnormalities. Imaging studies did show chronic density and induration surrounding upper central mesentery. GI was consulted and evaluated the patient. 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 Patient did undergo EGD evaluation and there was no acute abnormalities known. Because of the abnormal MRA study it was indicated by GI that Gen. surgery should evaluate the patient considering that the abnormal finding can be causing her abdominal colic pain. General surgery evaluated patient and recommended outpatient CT biopsy for further evaluation and management. Patient has been clinically stable since admission. She has been pain-free for over 48 hours. Patient very eager to go home. Patient will be set up with surgery for evaluation, follow-up. They will arrange for outpatient biopsy to be performed. Will plan discharge accordingly. Brief History - From Admission 72-year-old female known to me from previous admission, history of obesity, diabetes, gastric bypass, chronic degenerative disc disease however recently seen here for recurrence of intermittent abdominal/back pain. She Yesterday with aching abdominal pain, subsequently radiating to back. Nausea but no vomiting. This resolved with Dilaudid in the ER. She denies any chest pain or shortness of breath. Denies any fevers or chills. Says she otherwise feels all right. Previous admission this past week for same presentation. CT abdomen with hazy mesentery, with planned follow-up outpatient gastroenterology CBC/BMP: 02/09/17 0550 02/10/17 4429 Significant Findings Laboratory Tests Test 02/08/17 02/08/17 02/09/17 19:47 22:10 05:50 Estimat Glomerular Filtration 68 ML/MIN (>89) Rate Aspartate Amino Transf 48 U/L (15-37) (AST/SGOT) Urine Ketones 15 mg/dL (NEG) Urine Leukocyte Esterase LARGE (NEG) Urine WBC 6-8 /hpf (0-5) Urine Squamous Epithelial > 8 /hpf (0-5) Cells Neutrophils (%) (Auto) 82.4 % (16.0-70.0) Lymphocytes # (Auto) 0.6 TH/MM3 (1.0-4.8) Chloride Level 111 MEQ/L (98-107) Random Glucose 122 MG/DL (74-106) Calcium Level 7.9 MG/DL (8.5-10.1) Imaging Last Impressions Abdomen Magnetic Resonance Angio 02/09/17 0000 Signed Impressions: Service Date/Time: Thursday, February 09, 2017 16:16 - CONCLUSION: Normal appearing abdominal aorta and aortic branches. No evidence of significant stenosis or vasculopathy. Small right adrenal gland nodule. Stable mesenteric process as described on recent CT. Byron Cordova MD Abdomen/Pelvis CT 02/08/17 1934 Signed Impressions: Service Date/Time: Wednesday, February 08, 2017 21:13 - CONCLUSION: 1. The previously noted chronic density and induration surrounding the upper central mesentery including the celiac axis and pancreatic head region appears mildly more prominent. This is of unclear significance but could represent inflammation. There is similar apparent inflammation surrounding portions of the retroperitoneum which extends along both iliac chains. 2. Stable small right adrenal mass. 3. Status post cholecystectomy. 4. Postsurgical changes involving the stomach. 5. Small hiatal hernia. Murphy Mendoza MD PE at Discharge GENERAL: Well-developed, well-nourished, in no acute distress. alert and orientated HEENT: Head is normocephalic without any lesions or masses noted. Facial features are symmetric. Eyes: Extraocular muscles are intact. Conjunctivae were clear. NECK: Supple without any masses. Trachea midline no deviation. No JVD, CARDIAC: Regular rhythm, regular rate. S1/S2 are heard. No murmurs gallops or rubs. LUNGS: Clear to auscultation bilaterally. No wheeze, rhonchi or rales. No use of accessory muscles on inspiration or expiration. ABDOMEN: Soft, nontender. Nondistended. Bowel sounds heard in all 4 quadrants. No organomegaly or masses. Negative rebound, negative guarding EXTREMITIES: No edema, pulses are equal bilaterally. No cyanosis or clubbing NEUROLOGY: Mood and affect appear appropriate. Cranial nerves II through XII grossly intact. Moving all extremities, speech is clear Hospital Course Acute on chronic recurrent intermittent abdominal pain: Patient presents with recurrent abdominal pain. Patient had multiple admissions for this with extensive workups. CT scan was done of the abdomen which does note a chronic density and induration surrounding the upper central mesentery occluding the celiac's axis and pancreatic head region appearing mildly more prominent. There is similar compared inflammation surrounding portions of the retroperitoneum which extends along the iliac chains. MRA of the abdomen was performed which did show normal-appearing abdominal aorta and aortic branches. However, there does appear to be soft tissue mass in the retroperitoneum encasing the celiac and superior mesenteric arteries. Ski Lift Mechanic was consulted for recommendations and patient did undergo EGD today and he notified us that there was no acute abnormalities. Consulted general surgery who recommended outpatient CT-guided biopsy of the soft tissue mass Chronic depression, sleep disorder, and creatinine insufficiency, hypothyroidism , herpes on suppression, all other chronic issues. Home medications were continued DVT prevention: Sequential compression devices, avoid chemical prophylaxis time due to possible procedure Pt Condition on Discharge: Stable Discharge Disposition: Discharge Home Discharge Time: > 30 minutes Discharge Instructions DIET: Follow Instructions for: Heart Healthy Diet Activities you can perform: Regular-No Restrictions Activities to Avoid: Driving for 24 hrs Follow up Referrals: Gastroenterology - 1 Week PCP Follow-up - 2-3 Days Surgical - 2-3 Days with Kalin Mendez MD Continued Medications: Acyclovir (Zovirax) 400 Mg Tab 400 MG PO BID Mgmt Viral Infection Ref 0 TAB Baclofen (Baclofen) 10 Mg Tab 10 MG PO TID Muscle Spasm Ref 0 TAB Fluoxetine (Prozac) 20 Mg Cap 20 MG PO DAILY #30 Ref 0 CAP Levothyroxine (Levothyroxine) 75 Mcg Tab 75 MCG PO DAILY Thyroid #30 Ref 0 TAB Ondansetron (Zofran) 4 Mg Tab 4 MG PO Q6HR PRN NAUSEA OR VOMITING Ref 0 TAB Oxycodone-Acetaminophen (Percocet) 10-325 mg Tab 1 TAB PO Q6H PRN PAIN Ref 0 TAB Pancrelipase (Zenpep) 40,000-136,000-218,000 Units Cap 1 CAP PO TIDPC Digestive Aid #90 Ref 0 CAP Additional Information Written by Tom Patten, acting as scribe for Dr. Varner on 02/11/17 at 13: 41. This note was transcribed by scribe Tom Patten. I, Dr. Alejandro Varner personally performed the history, physical exam, and medical decision making; and confirmed the accuracy of the information in the transcribed note. Authenticated by Dr. Alejandro Varner on 02/11/17 at 13:43. Tom Patten Feb 11, 2017 13:41 Alejandro Varner MD Feb 11, 2017 13:43
--- NOTE | 2017-02-11 15:52 | MB ---
cc: ROLANDO BAY MD,ALFRED BELTRAN,DALI Sanchez M.D. DATE OF CONSULTATION: 02/11/2017 REASON FOR CONSULTATION: Questionable retroperitoneal mass associated with the pancreas. HISTORY OF PRESENT ILLNESS: This is a somewhat complex patient. She has had longstanding problems with abdominal discomfort that has been somewhat unknown cause. She has had a gastric bypass in the past and a cholecystectomy and a hiatal hernia all done by Dr. Randall Martínez. She had an appointment up in [place] at [facility] for evaluation of pancreatic divisum that was seen on an outpatient MRCP. She has been under the care of numerous gastroenterologists and Dr. Bay and recently Dr. Beltran. She has had two admissions to the hospital this month and an admission into [facility] in December that she missed her appointment in [place]. She has an appointment apparently on March 09 for evaluation. The pain she describes around her back goes in the midabdomen. It is usually of sudden onset and then she comes to the emergency room and gets a little bit of Dilaudid and that seems to relieve the discomfort. This was happening about every three or four months and now it happens every one or two weeks or so. I was asked to evaluate the patient to see if there is any surgical intervention that is needed on an urgent basis. PAST MEDICAL HISTORY: Her past medical history is significant for: 1. Gastric bypass. 2. Cholecystectomy. 3. Hiatal hernia repair. 4. She has had problems with reflux. 5. She had knee surgery and other orthopedic procedures. ALLERGIES: SHE IS ALLERGIC TO ENALAPRIL. MEDICATIONS: Medications she takes as an outpatient: 1. Acyclovir. 2. Baclofen. 3. Prozac. 4. Synthroid. 5. Zofran. 6. Percocet. 7. Zenpep three times a day. PHYSICAL EXAMINATION: GENERAL: On physical exam she is she is sitting up in bed. She has finished eating a full liquid diet. NECK: The neck is supple. CHEST: Clear. HEART: Regular rate. ABDOMEN: She has a laparoscopic scars. She has some mild soreness in the midepigastric region. Bowel sounds. No rebound or guarding. No particular tenderness elsewhere. NEUROLOGIC: She is alert, oriented somewhat concerned with her medical condition. LABORATORY DATA: White count was 5, hemoglobin 13, hematocrit 40. Chemistries and liver function tests were all normal during admission. IMAGING STUDIES: She had an abdominal CT and an MRA which showed a stable mesenteric inflammatory mass. She describes a soft-tissue mass encasing the celiac and superior mesenteric arteries but is less conspicuous than the previous CT scan done in the past which was compared to July of 2016. I had a telephone conversation with Dr. Rolando Bay and got some more information about this somewhat complex patient and what surgical intervention may be indicated. ASSESSMENT: A 72-year-old female with a somewhat complicated history status post a gastric bypass, cholecystectomy and hiatal hernia repair now. In addition she has pancreatic divisum seen on an MRCP on an outpatient basis. She has recurrent acute abdominal pain attacks that are somewhat unexplained. The CT findings of this stranding around the pancreas with this soft tissue mass encasing the celiac vessels is not concerning for malignancy. PLAN: I had previously discussed with the patient about doing either a CT-guided biopsy, endoscopic ultrasound biopsy or surgical biopsy as least invasive as possible but after reviewing the case with Dr. Bay, this is a chronic problem and I am not sure I could add anything with obtaining a CT-guided biopsy unless the physicians and surgeons at [facility] feel that is necessary. I would advise keeping the appointment at the [facility] facility for their input. I talked to Dr. Varner about discharging the patient. She could certainly be treated on an outpatient basis and of course if her pain returns, she does have a pain management doctor and she may ask him to give her some oral Dilaudid as that appears to assist in her discomfort. MD ALEXANDR Mejia/FREDERIC /2:35 PM /3:29 PM
--- NOTE | 2017-02-11 17:52 | MR ---
cc: ANA MORELAND MD, SUNIL P. M.D. DATE: 02/10/2017 DATE OF : 1945 UPPER ENDOSCOPY INDICATIONS FOR PROCEDURE: The patient is a pleasant 72 year-old white female with continued abdominal pain - hyper gastric/periumbilical, crampy in nature. She has had numerous evaluations and the exact etiology is unclear. The patient was taking nonsteroidal anti-inflammatory drugs had a history of peptic ulcer disease in the past. This procedure is being done to check for peptic ulcers. She has also had an abnormal MRA which showed a soft tissue mass encasing the celiac artery/axis. There is also a history of a blaire mesentery on a previous CAT scan. ENDOSCOPIST: Tree Craven MD ASSISTANTS: Gastrointestinal laboratory personnel. SCOPE: Pentex video adult gastroscope. ANESTHESIA: Diprivan per , anesthesia. INTRAVENOUS MEDICATION: See above. PHYSICAL EXAM: Vital signs stable. She is afebrile. Lungs, unremarkable. Heart no murmurs, abdomen soft, nontender, she is alert and oriented times three. CONTINUOUS MONITORING: The patient had routine blood pressure monitoring, pulse oximeter/oxygen, and cardiac monitoring. INFORMED CONSENT: Obtained with full verbal understanding, the indication for procedure (see above), risks and complications (bleeding, perforation, infection, arrhythmias, mediastinitis, small possibility of , etc.), limitations (we may not see everything due to prep and anatomy especially if there is a lot of blood in the stomach or food is there, etc.), alternatives (upper GI, small bowel follow through, surgery, etc.), benefits (we can potentially see the entire esophagus, stomach, and part of the duodenum, and biopsy, cauterize, inject or dilate various lesions or abnormalities if needed, etc.) All questions were answered, all parties agreed to the procedure. DESCRIPTION OF PROCEDURE: While in the left lateral decubitus position and after the patient was sedated the above mentioned gastroscope was passed into the esophagus, through a very small gastric pouch into the jejunum. FINDINGS: 1. Esophagus: The gastroesophageal junction is located at approximately 38 cm, there is no mucosal lesions, hiatal hernia or esophageal varices seen. The esophagus is essentially unremarkable. 2. Stomach: The stomach was a very small remnant. She essentially had no stomach. There is evidence of a gastric bypass - looked like a Ashu-en-Y a anastamosis. The gastric pouch was so small I could not retroflex. The gastric pouch was unremarkable- no ulcers, masses, erosions, gastritis or varices seen. 3. Jejunum: The gastric bypass anastomosis was patent. I was able to easily pass the scope in the jejunum and the jejunum was evaluated for almost 30 cm's and endoscopically unremarkable. SPECIMEN: None. TOLERANCE OF PROCEDURE: The scope was totally withdrawn and the patient tolerated the procedure quite well. No immediate complications. Lungs, heart, vital signs and the rest of the physical exam is unchanged post procedure. The patient was transported in a stable state to the recovery area. IMPRESSION: 1. Abdominal pain (hypogastric pain and periumbilical )- nothing on the examination to explain the situation. 2. History of peptic ulcer disease. 3. Abnormal CAT scan. PLAN: 1. I discussed the situation with the patients admitting doctor Dr. Moreland. We decided to consult general surgery for consideration of a laparoscopy for further evaluation of an abnormal MRA - it showed a soft tissue mass encasing the cecal axis area and previously she had has also had a blaire mesentery. Also consider laparoscopy to evaluate for any type adhesions, malignancy or any other process that plays a role in abdominal symptoms. 2. Further recommendations depending on how she does. MD JOHANNA Stover/eboni /7:50 AM /5:37 PM ALFRED
== END 2017-02-11 15:30 | disposition home or self-care (01) ==
LOC: PHED 18:19 → PHEDA 21:32 → PH3A 23:17
PROVIDERS: ADMIT Internal Medicine; ATTEND Internal Medicine
DX: R10.33 Periumbilical pain (principal); R93.5 Abnormal findings on diagnostic imaging of other abdominal regions, including retroperitoneum; R94.5 Abnormal results of liver function studies; E66.9 Obesity, unspecified; F32.9 Major depressive disorder, single episode, unspecified; E03.9 Hypothyroidism, unspecified; R74.0 Nonspecific elevation of levels of transaminase and lactic acid dehydrogenase [LDH]; Z87.11 Personal history of peptic ulcer disease; Z98.84 Bariatric surgery status; E78.5 Hyperlipidemia, unspecified; G47.33 Obstructive sleep apnea (adult) (pediatric); F41.9 Anxiety disorder, unspecified; E11.65 Type 2 diabetes mellitus with hyperglycemia; E27.9 Disorder of adrenal gland, unspecified; Z86.010 Personal history of colon polyps; Z90.49 Acquired absence of other specified parts of digestive tract; Z87.19 Personal history of other diseases of the digestive system; Z68.25 Body mass index [BMI] 25.0-25.9, adult; Z88.8 Allergy status to other drugs, medicaments and biological substances; Z96.659 Presence of unspecified artificial knee joint
CPT/HCPCS: 00740; 43235; 74177; 80048; 80053; 81001; 82150; 82565; 82948; 83690; 85025; 96361; 96374; 96375; 96376; 99285; A9579; C8900; G0378; J1170; J2405; J7030; Q9967

== ENCOUNTER 2017-07-20 11:04 | Observation (INO) | payer OTHER ==
[2017-07-20] VITALS (7 sets, daily range): BP systolic 126–209; BP diastolic 63–117; PULSE 68–74; RESP 16–24; TEMP 97.8–98.2; O2SAT 95–100
[~2017-07-20] VITALS: Ht 175.3 cm; Wt 106.0 kg
[~2017-07-20 11:04] MED LIST changes: +PERC10TA27 PO; -PERC5TAB12 PO; -REST15CA PO
[2017-07-20] MEDS ORDERED: TEMA30CA PO (11:19)
[2017-07-20] MEDS ORDERED: LOVA40TA PO (11:21)
[2017-07-20] MEDS ORDERED: LOVA20TA PO (11:21)
[2017-07-20] MEDS ORDERED: HYDROmorphone HCL PF 1 MG/ML VIAL IV PUSH ONE ×2 (11:45→13:00)
[2017-07-20] MEDS ORDERED: SODIUM CHLORIDE 0.9% FLUSH 10 ML FLUSH IV FLUSH PRN ×2 (11:45→15:30)
[2017-07-20] MEDS ORDERED: ONDANSETRON HCL 4 MG/2 ML VIAL IVP ONE (11:45)
[2017-07-20] MEDS ORDERED: SODIUM CHLOR 0.9% 1000 ML INJ 1,000 ML IV SCH ×2 (11:45→12:44)
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
[2017-07-20 12:18] LABS: AUTOMATED NEUTROPHIL # 3.7 TH/MM3 (1.8-7.7); BASOPHIL % 0.6 % (0.0-2.0); EOSINOPHIL # 0.1 TH/MM3 (0-0.4); EOSINOPHIL % 2.3 % (0.0-4.0); HEMATOCRIT 44.5 % (35.0-46.0); HEMO FLAGS DIFF FINAL; LYMPH % 25.3 % (9.0-44.0); LYMPHOCYTE # 1.4 TH/MM3 (1.0-4.8); MEAN CELL VOLUME 91.8 FL (80.0-100.0); MEAN CORPUSCULAR HGB CONC 32.6 % (32.0-36.0); MONO % 5.8 % (0.0-8.0); PLATELET COUNT 349 TH/MM3 (150-450); RED BLOOD COUNT 4.84 MIL/MM3 (4.00-5.30); RED CELL DISTRIBUTION WIDTH 14.1 % (11.6-17.2); WHITE BLOOD COUNT 5.6 TH/MM3 (4.0-11.0)
[2017-07-20 12:33] LABS: ANION GAP 8 MEQ/L (5-15); AST (GOT) 35 U/L (15-37); BICARBONATE 28.4 MEQ/L (21.0-32.0); BLOOD UREA NITROGEN 7 MG/DL (7-18); CHLORIDE 104 MEQ/L (98-107); GLOMERULAR FILTRATION RATE 102 ML/MIN (>89); POTASSIUM 3.6 MEQ/L (3.5-5.1); SODIUM (NA) 140 MEQ/L (136-145)
[2017-07-20 12:37] LABS: ALKALINE PHOSPHATASE 156 U/L (45-117); ALT (GPT) 52 U/L (10-53); TOTAL BILIRUBIN ADULT 0.3 MG/DL (0.2-1.0)
[2017-07-20 13:43] LABS: BACTERIA, URINE RARE /hpf; BLOOD, URINE NEG (NEG); COMMENT (UR) CULT NOT INDICATED; CULTURE IF INDICATED CULT NOT INDICATED; GLUCOSE,URINE NEG (NEG); KETONE, URINE TRACE mg/dL (NEG); NITRITE,URINE NEG (NEG); SQUAMOUS EPITHELIAL CELL URINE 2 /hpf (0-5); TRANSITIONAL EPI CELLS, URINE <1 /hpf; URINE COLOR YELLOW (YELLW/STRAW)
[2017-07-20] MEDS ORDERED: IOHEXOL 350 MG/ML 10 ML VIAL (for RAD DIAG) IVCONTRAST ONE (15:22)
--- NOTE | 2017-07-20 15:24 | PD ---
Data Data Last Documented VS Vital Signs Date Time Temp Pulse Resp B/P (MAP) Pulse Ox O2 Delivery O2 Flow Rate FiO2 07/20/17 13:48 17 07/20/17 12:48 98.1 68 174/92 (119) 100 Room Air Orders Orders Complete Blood Count With Diff (07/20/17 11:45) Comprehensive Metabolic Panel (07/20/17 11:45) Lipase (07/20/17 11:45) Lactic Acid (07/20/17 11:45) Urinalysis - C+S If Indicated (07/20/17 11:45) Iv Access Insert/Monitor (07/20/17 11:45) Ecg Monitoring (07/20/17 11:45) Oximetry (07/20/17 11:45) Ondansetron Inj (Zofran Inj) (07/20/17 11:45) Sodium Chlor 0.9% 1000 Ml Inj (Ns 1000 M (07/20/17 11:45) Sodium Chloride 0.9% Flush (Ns Flush) (07/20/17 11:45) Electrocardiogram (07/20/17 11:45) Hydromorphone Pf Inj (Dilaudid Pf Inj) (07/20/17 11:45) Sodium Chlor 0.9% 1000 Ml Inj (Ns 1000 M (07/20/17 12:44) Hydromorphone Pf Inj (Dilaudid Pf Inj) (07/20/17 13:00) Lactic Acid (07/20/17 14:05) Admit Order (Ed Use Only) (07/20/17 15:20) Drug Screen, Random Urine (07/20/17 15:21) Labs Laboratory Tests Test 07/20/17 11:15 07/20/17 13:20 07/20/17 14:00 White Blood Count 5.6 TH/MM3 Red Blood Count 4.84 MIL/MM3 Hemoglobin 14.5 GM/DL Hematocrit 44.5 % Mean Corpuscular Volume 91.8 FL Mean Corpuscular Hemoglobin 30.0 PG Mean Corpuscular Hemoglobin Concent 32.6 % Red Cell Distribution Width 14.1 % Platelet Count 349 TH/MM3 Mean Platelet Volume 7.8 FL Neutrophils (%) (Auto) 66.0 % Lymphocytes (%) (Auto) 25.3 % Monocytes (%) (Auto) 5.8 % Eosinophils (%) (Auto) 2.3 % Basophils (%) (Auto) 0.6 % Neutrophils # (Auto) 3.7 TH/MM3 Lymphocytes # (Auto) 1.4 TH/MM3 Monocytes # (Auto) 0.3 TH/MM3 Eosinophils # (Auto) 0.1 TH/MM3 Basophils # (Auto) 0.0 TH/MM3 CBC Comment DIFF FINAL Differential Comment Blood Urea Nitrogen 7 MG/DL Creatinine 0.58 MG/DL Random Glucose 84 MG/DL Total Protein 7.8 GM/DL Albumin 3.5 GM/DL Calcium Level 9.1 MG/DL Alkaline Phosphatase 156 U/L Aspartate Amino Transf (AST/SGOT) 35 U/L Alanine Aminotransferase (ALT/SGPT) 52 U/L Total Bilirubin 0.3 MG/DL Sodium Level 140 MEQ/L Potassium Level 3.6 MEQ/L Chloride Level 104 MEQ/L Carbon Dioxide Level 28.4 MEQ/L Anion Gap 8 MEQ/L Estimat Glomerular Filtration Rate 102 ML/MIN Lactic Acid Level 2.7 mmol/L 2.2 mmol/L Lipase 60 U/L Urine Color YELLOW Urine Turbidity CLEAR Urine pH 8.0 Urine Specific [place] 1.009 Urine Protein NEG mg/dL Urine Glucose (UA) NEG mg/dL Urine Ketones TRACE mg/dL Urine Occult Blood NEG Urine Nitrite NEG Urine Bilirubin NEG Urine Urobilinogen LESS THAN 2.0 MG/DL Urine Leukocyte Esterase MOD Urine RBC LESS THAN 1 /hpf Urine WBC 4 /hpf Urine Squamous Epithelial Cells 2 /hpf Urine Transitional Epithelial Cells <1 /hpf Urine Bacteria RARE /hpf Microscopic Urinalysis Comment CULT NOT INDICATED MDM Supervised Visit with CARO: Yes Narrative Course The history, exam, and medical decision-making in the associated mid-level provider note were completed with my assistance. I reviewed and agree with the findings presented. I attest that I had a [id number] encounter with the patient on the same day, and personally performed and documented my assessment and findings in the medical record. *My assessment and Findings: 72-year-old with acute on chronic abdominal pain, history of chronic pancreatitis. Intractable symptoms in the ED. Will be admitted for observation. Benign abdominal exam. Diagnosis Primary Impression: Intractable abdominal pain Additional Impression: Nausea and vomiting Qualified Codes: R11.2 - Nausea with vomiting, unspecified Scott Pastor MD Jul 20, 2017 15:24
[2017-07-20] MEDS ORDERED: SENNOSIDES 8.6 MG TAB PO PRN (15:30)
[2017-07-20] MEDS ORDERED: ACETAMINOPHEN 325 MG TAB PO PRN (15:30)
[2017-07-20] MEDS ORDERED: LACTULOSE SYRUP 20 GM/30 ML CUP PO PRN (15:30)
[2017-07-20] MEDS ORDERED: BISACODYL 10 MG SUPP RECTAL PRN (15:30)
[2017-07-20] MEDS ORDERED: NALOXONE HCL 0.4 MG/ML AMP IV PUSH PRN (15:30)
[2017-07-20] MEDS ORDERED: MAGNESIUM HYDROXIDE SUSP 30 ML CUP PO PRN (15:30)
[2017-07-20] MEDS: SODIUM CHLOR 0.9% 1000 ML INJ 1,000 ML IV SCH (15:52)
--- NOTE | 2017-07-20 15:56 | HHI.HP ---
[facility] Service [facility] Primary Care Physician Non-Staff Admission Diagnosis intractable abdominal pain, nausea and vomiting Diagnoses: Chief Complaint: Abdominal pain and nausea vomiting Travel History International Travel<30 Days: No Contact w/Intl Traveler <30 Da: No Traveled to Known Affected Are: No History of Present Illness 72-year-old female history of depression, chronic abdominal pain, status post gastric bypass who presented with worsening abdominal pain. Patient has had multiple admissions due to abdominal pain workup has been negative. Since last admission she was also to [facility] for further workup. Per patient she went to [facility] and they stated she did not need further workup and that she should see pain management for a celiac plexus block. Patient stated that she was scheduled for a celiac plexus block on July 28 but she missed the preop appointment so this will be delayed. He stated that her pain management physician Dr. Gagnon put on Percocet. He tried to put on morphine but she did not like morphine. Patient stated that she was told by either [facility] or Dr. Castaneda her GI physician that she has chronic pancreatitis despite her lipase being negative. She stated she had had a stool test that determine this. When I asked patient if she had any vomiting or emesis she denied it but stated that her stomach has a lot of bile in it. I asked patient how that she know her stomach has a lot of bile and if she's not able to see it. She looked at me and confusion. I then explained to patient that bile is used to describe vomit or a substance that he can visually see. I then asked her again the she stated that she vomited since 9 AM continuously. I asked her just describe the vomit and she said it was white and frothy. During the interview patient had no episodes of emesis. Denies any fevers or chills. Denies any GI bleed. Patient states she had normal bowel movements. All other review of systems reviewed and negative. Past Family Social History Past Medical History Sleep disorder Pancreatic insufficiency Chronic neck and low back pain due to degenerative disc disease Herpes on chronic suppression Hypothyroidism. Reported hyperlipidemia Frequent UTIs History of diabetes and obstructive sleep apnea resolved with gastric bypass. Past Surgical History Hyperlipidemia Left knee surgery Gastric bypass in 2007 Hysterectomy Cholecystectomy 2012 History of hiatal hernia repair ERCP which was negative done in January 2017 Reported Medications Lovastatin 40 Mg Tab 40 Mg PO HS Temazepam 30 Mg Cap 30 Mg PO HS PRN Percocet (Oxycodone-Acetaminophen) 10-325 mg Tab 1 Tab PO Q6H PRN Zenpep (Pancrelipase) 40,000-136,000-218,000 Units Cap 1 Cap PO TIDPC Zovirax (Acyclovir) 400 Mg Tab 400 Mg PO BID Zofran (Ondansetron HCl) 4 Mg Tab 4 Mg PO Q6HR PRN Prozac (Fluoxetine HCl) 20 Mg Cap 20 Mg PO DAILY Levothyroxine (Levothyroxine Sodium) 75 Mcg Tab 75 Mcg PO DAILY Baclofen 10 Mg Tab 10 Mg PO TID Allergies: Coded Allergies: enalaprilat (Verified Adverse Reaction, Severe, COUGHING, 07/20/17) Active Ordered Medications Current Medications Ondansetron HCl (Zofran Inj) 4 mg ONCE ONCE IVP Last administered on 11:54; Start 07/20/17 at 11:45; Stop 07/20/17 at 11:47; Status DC Sodium Chloride 1,000 ml @ 1,000 mls/hr Q1H IV Last administered on 07/20/17 11:55; Start 07/20/17 at 11:45; Stop 07/20/17 at 12:44; Status DC Sodium Chloride (NS Flush) 2 ml UNSCH PRN IV FLUSH FLUSH AFTER USING IV ACCESS Last administered on 07/20/17 11:55; Start 07/20/17 at 11:45; Stop 07/20/17 at 15:39; Status DC Hydromorphone HCl (Dilaudid Pf Inj) 0.5 mg ONCE ONCE IV PUSH Last administered on 07/20/17 11:55; Start 07/20/17 at 11:45; Stop 07/20/17 at 11:47 ; Status DC Sodium Chloride 1,000 ml @ 1,000 mls/hr Q1H IV Last administered on 07/20/17 12:48; Start 07/20/17 at 12:44; Stop 07/20/17 at 13:43; Status DC Hydromorphone HCl (Dilaudid Pf Inj) 0.5 mg ONCE ONCE IV PUSH Last administered on 07/20/17t 13:18; Start 07/20/17 at 13:00; Stop 07/20/17 at 13:01 ; Status DC Sodium Chloride 1,000 ml @ 100 mls/hr Q10H IV Last administered on 07/20/17t 15:52; Start 07/20/17 at 16:00 Sodium Chloride (NS Flush) 2 ml UNSCH PRN IV FLUSH FLUSH AFTER USING IV ACCESS ; Start 07/20/17 at 15:30 Sodium Chloride (NS Flush) 2 ml BID IV FLUSH ; Start 07/20/17 at 21:00 Acetaminophen (Tylenol) 650 mg Q4H PRN PO TEMP > 100.4; Start 07/20/17 at 15:30 Ondansetron HCl (Zofran Inj) 4 mg Q6H PRN IVP NAUSEA OR VOMITING; Start at 15:30 Naloxone HCl (Narcan Inj) 0.4 mg UNSCH PRN IV PUSH SEE LABEL COMMENTS; Start at 15:30 Senna/Docusate Sodium ([place]-Colace) 1 tab BID PO ; Start 07/20/17 at 21:00 Magnesium Hydroxide (Milk Of Magnesia Liq) 30 ml Q12H PRN PO MILD - MODERATE CONSTIPATION; Start 07/20/17 at 15:30 Sennosides (Senokot) 17.2 mg Q12H PRN PO MODERATE - SEVERE CONSTIPATION; Start 07/20/17 at 15:30 Bisacodyl (Dulcolax Supp) 10 mg DAILY PRN RECTAL SEVERE CONSITIPATION; Start at 15:30 Lactulose (Lactulose Liq) 30 ml DAILY PRN PO SEVERE CONSITIPATION; Start at 15:30 Hydromorphone HCl (Dilaudid Pf Inj) 0.5 mg Q4H PRN IV PUSH pain 1-10; Start at 16:00; Status UNV Acetaminophen/ Hydrocodone Bitart ([place] 5-325 Mg) 1 tab Q4H PRN PO pain 1-7; Start 07/20/17 at 16:00; Status UNV Acetaminophen/ Hydrocodone Bitart ([place] 5-325 Mg) 2 tab Q4H PRN PO 8-10; Start 07/20/17 at 16:00; Status UNV Family History Mother with stroke passing away at age 82. Father unknown. Social History Nonsmoker, nondrinker, denies illicit drugs. Physical Exam Vital Signs Vital Signs Date Time Temp Pulse Resp B/P (MAP) Pulse Ox O2 Delivery O2 Flow Rate FiO2 07/20/17 15:52 97.9 71 16 153/78 (103) 99 Room Air 07/20/17 13:48 17 07/20/17 12:48 98.1 68 18 174/92 (119) 100 Room Air 07/20/17 12:25 17 07/20/17 11:53 20 99 Room Air 07/20/17 11:19 20 07/20/17 11:07 97.9 74 24 209/117 (147) 99 Room Air Physical Exam GENERAL: This is a well-nourished, well-developed patient, in no apparent distress. Looks very comfortable. SKIN: No rashes, ecchymoses or lesions. Cool and dry. HEAD: Atraumatic. Normocephalic. No temporal or scalp tenderness. EYES: Pupils equal round and reactive. Extraocular motions intact. No scleral icterus. No injection or drainage. ENT: Nose without bleeding, purulent drainage or septal hematoma. Throat without erythema, tonsillar hypertrophy or exudate. Uvula midline. Airway patent. NECK: Trachea midline. No JVD or lymphadenopathy. Supple, nontender, no meningeal signs. CARDIOVASCULAR: Regular rate and rhythm without murmurs, gallops, or rubs. RESPIRATORY: Clear to auscultation. Breath sounds equal bilaterally. No wheezes , rales, or rhonchi. GASTROINTESTINAL: Abdomen soft, and nondistended. + TTP in LLQ. No hepato- splenomegaly, or palpable masses. No guarding. Negative peritoneal signs. MUSCULOSKELETAL: Extremities without clubbing, cyanosis, or edema. No joint tenderness, effusion, or edema noted. No calf tenderness. Negative Homans sign bilaterally. NEUROLOGICAL: Awake and alert. Cranial nerves II through XII intact. Motor and sensory grossly within normal limits. Five out of 5 muscle strength in all muscle groups. Normal speech. Laboratory Laboratory Tests Test 07/20/17 11:15 07/20/17 13:20 07/20/17 14:00 White Blood Count 5.6 Red Blood Count 4.84 Hemoglobin 14.5 Hematocrit 44.5 Mean Corpuscular Volume 91.8 Mean Corpuscular Hemoglobin 30.0 Mean Corpuscular Hemoglobin Concent 32.6 Red Cell Distribution Width 14.1 Platelet Count 349 Mean Platelet Volume 7.8 Neutrophils (%) (Auto) 66.0 Lymphocytes (%) (Auto) 25.3 Monocytes (%) (Auto) 5.8 Eosinophils (%) (Auto) 2.3 Basophils (%) (Auto) 0.6 Neutrophils # (Auto) 3.7 Lymphocytes # (Auto) 1.4 Monocytes # (Auto) 0.3 Eosinophils # (Auto) 0.1 Basophils # (Auto) 0.0 CBC Comment DIFF FINAL Differential Comment Blood Urea Nitrogen 7 Creatinine 0.58 Random Glucose 84 Total Protein 7.8 Albumin 3.5 Calcium Level 9.1 Alkaline Phosphatase 156 Aspartate Amino Transf (AST/SGOT) 35 Alanine Aminotransferase (ALT/SGPT) 52 Total Bilirubin 0.3 Sodium Level 140 Potassium Level 3.6 Chloride Level 104 Carbon Dioxide Level 28.4 Anion Gap 8 Estimat Glomerular Filtration Rate 102 Lactic Acid Level 2.7 2.2 Lipase 60 Urine Color YELLOW Urine Turbidity CLEAR Urine pH 8.0 Urine Specific [place] 1.009 Urine Protein NEG Urine Glucose (UA) NEG Urine Ketones TRACE Urine Occult Blood NEG Urine Nitrite NEG Urine Bilirubin NEG Urine Urobilinogen LESS THAN 2.0 Urine Leukocyte Esterase MOD Urine RBC LESS THAN 1 Urine WBC 4 Urine Squamous Epithelial Cells 2 Urine Transitional Epithelial Cells <1 Urine Bacteria RARE Microscopic Urinalysis Comment CULT NOT INDICATED Urine Opiates Screen NEG Urine Barbiturates Screen NEG Urine Amphetamines Screen NEG Urine Benzodiazepines Screen NEG Urine Cocaine Screen NEG Urine Cannabinoids Screen NEG Result Diagram: 07/20/17 1115 07/20/17 1115 Caprini VTE Risk Assessment Caprini VTE Risk Assessment: Mod/High Risk (score >= 2) VTE Pharm Contraindication: High risk for bleeding Caprini Risk Assessment Model Point Value = 1 Point Value = 2 Point Value = 3 Point Value = 5 Age 41-60 Minor surgery BMI > 25 kg/m2 Swollen legs Varicose veins or History of unexplained or recurrent spontaneous Oral contraceptives or hormone replacement Sepsis (< 1 month) Serious lung disease, including pneumonia (< 1 month) Abnormal pulmonary function Acute myocardial infarction Congestive heart failure (< 1 month) History of inflammatory bowel disease Medical patient at bed rest Age 61-74 Arthroscopic surgery Major open surgery (> 45 min) Laparoscopic surgery (> 45 min) Malignancy Confined to bed (> 72 hours) Immobilizing plaster cast Central venous access Age >= 75 History of VTE Family history of VTE Factor V Leiden Prothrombin [id number] Lupus anticoagulant Anticardiolipin antibodies Elevated serum homocysteine Heparin-induced thrombocytopenia Other congenital or acquired thrombophilia Stroke (< 1 month) Elective arthroplasty Hip, pelvis, or leg fracture Acute spinal cord injury (< 1 month) Prophylaxis Regimen Total Risk Factor Score Risk Level Prophylaxis Regimen 0-1 Low Early ambulation 2 Moderate Order ONE of the following: *Sequential Compression Device (SCD) *Heparin 5000 units SQ BID 3-4 Higher Order ONE of the following medications: *Heparin 5000 units SQ TID *Enoxaparin/Lovenox 40 mg SQ daily (WT < 150 kg, CrCl > 30 mL/min) *Enoxaparin/Lovenox 30 mg SQ daily (WT < 150 kg, CrCl > 10-29 mL/min) *Enoxaparin/Lovenox 30 mg SQ BID (WT < 150 kg, CrCl > 30 mL/min) AND/OR *Sequential Compression Device (SCD) 5 or more Highest Order ONE of the following medications: *Heparin 5000 units SQ TID (Preferred with Epidurals) *Enoxaparin/Lovenox 40 mg SQ daily (WT < 150 kg, CrCl > 30 mL/min) *Enoxaparin/Lovenox 30 mg SQ daily (WT < 150 kg, CrCl > 10-29 mL/min) *Enoxaparin/Lovenox 30 mg SQ BID (WT < 150 kg, CrCl > 30 mL/min) AND *Sequential Compression Device (SCD) Assessment and Plan Assessment and Plan 72-year-old female with chronic abdominal pain who presented with abdominal pain Acute on chronic intermittent abdominal pain -Patient had multiple admissions prior in which workup was negative. She was sent to [facility] for further workup as stated on her last admission. Per patient [facility] stated no further workup and for her to see pain management for a celiac plexus block. She stated she was told this was due to chronic pancreatitis. -Labs are all normal. -Patient does state that this type of pain is different so we will get a CT scan of her abdomen. -Will treat with pain medication pending results. From previous admission her drug of choice for pain controlled seemed to be Dilaudid but her pain physician has on Percocet. Will give her IV in the meantime pending CT scan but she should be transitioned back to her Percocet. -Will get notes from [facility]. -Patient does have a pain management physician Dr. Gagnon in which she stated that she was scheduled on July 28 for a celiac plexus block. She stated that she missed the preop appointment and that this will be delayed. Intractable emesis -Patient stating that she has bilious emesis which she described as white and frothy. I tried to explained to patient this is not bilious but she disagreed. -I have not witnessed any emesis at the moment. Will continue to monitor. Will give antibiotics. IVFs. Chronic depression, sleep disorder, and creatinine insufficiency, hypothyroidism , herpes on suppression, all other chronic issues. -Continue home medication. DVT prevention: Sequential compression devices Code Status If workup is negative patient can be discharged to home. She should follow-up with her pain management physician since this is a chronic problem and get the celiac plexus block as recommended. Discussed Condition With patient Kendra Adame MD Jul 20, 2017 15:56
[2017-07-20] MEDS ORDERED: ACETAMINOPHEN/HYDROcodone 325 MG/5 MG TAB PO PRN ×2 (16:00)
[2017-07-20] MEDS ORDERED: DIATRIZOATE MEGLUM/DIATRIZOATE SOD 9 ML CUP ONE (16:15)
[2017-07-20] MEDS: HYDROmorphone HCL PF 1 MG/ML VIAL IV PUSH PRN ×2 (16:19→21:27)
[2017-07-20] MEDS: ONDANSETRON HCL 4 MG/2 ML VIAL IVP PRN ×2 (16:25→23:01)
[2017-07-20] MEDS: DIATRIZOATE MEGLUM/DIATRIZOATE SOD 9 ML CUP PO ONE (17:00)
--- NOTE | 2017-07-20 18:58 | RADRPT ---
EXAM DATE/TIME: 07/20/2017 18:29 [facility] COMPARISON: CT ABDOMEN & PELVIS W CONTRAST, February 08, 2017, 21:13. INDICATIONS : Abdominal pain. IV CONTRAST: 100 cc Omnipaque 350 (iohexol) IV ORAL CONTRAST: Prescribed oral contrast ingested. RADIATION DOSE: 9.75 CTDIvol (mGy) MEDICAL HISTORY : Hypertension. Hernia, hiatal. SURGICAL HISTORY : Cholecystectomy. ENCOUNTER: Initial ACUITY: 1 day PAIN SCALE: 9/10 LOCATION: Bilateral abdomen TECHNIQUE: Volumetric scanning of the abdomen and pelvis was performed. Using automated exposure control and ad justment of the mA and/or kV according to patient size, radiation dose was kept as low as reasonably achievable to obtain optimal diagnostic quality images. DICOM format image data is available electro nically for review and comparison. FINDINGS: There is chronic induration/fluid density throughout the mesenteric structures and also extending int o the retroperitoneum inferiorly within the iliac regions which is stable and remains nonspecific. Th e liver is stable in appearance without focal mass or biliary ductal dilatation. The gallbladder has been resected. A small stable hiatal hernia is noted. Gastric surgery has been performed. The spleen is normal. Uncomplicated colonic diverticulosis is noted. The pancreas is stable in appearance and de monstrates some decreased attenuation in the region of the head raising possibility of pancreatitis. Correlation with amylase and lipase is suggested. There is a stable right adrenal nodule measuring 2. 4 x 1.7 cm consistent with probable adrenal adenoma. The left adrenal gland is unremarkable. There ar e calcified nonobstructing left renal calculi. The largest measures 5 mm. Degenerative changes and sc oliosis of the thoracolumbar spine are noted. Degenerative change are also noted involving the hip sindy ints bilaterally. The urinary bladder is unremarkable. The appendix is normal. The abdominal aorta an d inferior vena cava are stable. CONCLUSION: No significant change compared to 02/08/17. Juan C Buck MD on July 20, 2017 at 18:49 Board Certified Radiologist. This report was verified electronically.
[2017-07-20] MEDS: DOCUSATE SODIUM 50 MG/SENNA 8.6 MG TAB PO SCH (21:00)
[2017-07-20] MEDS: SODIUM CHLORIDE 0.9% FLUSH 10 ML FLUSH IV FLUSH SCH (21:24)
--- NOTE | 2017-07-20 23:50 | EKG ---
Date Performed: 07/20/2017 Time Performed: 12:33:58 PTAGE: 72 years EKG: Sinus rhythm WITH OCCASIONAL ECTOPIC PREMATURE COMPLEXES POSSIBLE RIGHT VENTRICULAR CONDUCTION DELAY BORDERLINE E CG PREVIOUS TRACING : 08/21/2016 18.36 Compared to prior tracing no significant change DOCTOR: Orville Ordonez Interpretating Date/Time 07/20/2017 23:48:31
[2017-07-21] MEDS: SODIUM CHLOR 0.9% 1000 ML INJ 1,000 ML IV SCH ×2 (02:36→12:24)
[2017-07-21] MEDS: HYDROmorphone HCL PF 1 MG/ML VIAL IV PUSH PRN (02:36)
[2017-07-21 07:24] VITALS: BP 139/64; PULSE 70; RESP 20; TEMP 99; O2SAT 96
[2017-07-21] MEDS ORDERED: oxyCODONE/ACETAMINOPHEN 10 MG/325 MG TAB PO PRN (08:45)
[2017-07-21] MEDS: SODIUM CHLORIDE 0.9% FLUSH 10 ML FLUSH IV FLUSH SCH (09:00)
[2017-07-21] MEDS: DOCUSATE SODIUM 50 MG/SENNA 8.6 MG TAB PO SCH (09:36)
[2017-07-21] MEDS ORDERED: FLUoxetine HCL 20 MG CAP PO SCH (10:00)
[2017-07-21] MEDS ORDERED: LEVOTHYROXINE SODIUM 75 MCG TAB PO SCH (10:00)
--- NOTE | 2017-07-21 10:03 | HHI.PR ---
Subjective Remarks Follow up for abdominal pain. The patient reports feeling better today. Had occasional episodes of nausea, no vomiting overnight. Nausea relieved by zofran. Denies any significant abdominal pain today. Denies fevers/chills. She had a normal formed BM yesterday, and a small formed BM today. Denies any other medical complaints at this time. Objective Vitals Vital Signs Date Time Temp Pulse Resp B/P (MAP) Pulse Ox O2 Delivery O2 Flow Rate FiO2 07/21/17 07:24 99.0 70 20 139/64 (89) 96 07/21/17 03:06 12 07/20/17 23:37 98.1 70 18 140/63 (88) 97 07/20/17 20:08 98.2 68 18 126/66 (86) 95 07/20/17 17:12 97.8 78 16 130/77 (94) 99 07/20/17 15:52 97.9 71 16 153/78 (103) 99 Room Air 07/20/17 13:48 17 07/20/17 12:48 98.1 68 18 174/92 (119) 100 Room Air 07/20/17 12:25 17 07/20/17 11:53 20 99 Room Air 07/20/17 11:19 20 07/20/17 11:07 97.9 74 24 209/117 (147) 99 Room Air I/O 07/20/17 07/20/17 07/20/17 07/21/17 07/21/17 07/21/17 07:00 15:00 23:00 07:00 15:00 23:00 Intake Total 2000 ml Balance 2000 ml Intake IV Total 2000 ml # Voids 1 # Bowel Movements 0 Result Diagram: 07/20/17 1115 07/20/17 1115 Imaging Last Impressions Abdomen/Pelvis CT 07/20/17 0000 Signed Impressions: Service Date/Time: Thursday, July 20, 2017 18:29 - CONCLUSION: No significant change compared to 02/08/17. Juan C Buck MD Objective Remarks GENERAL: Well-nourished, well-developed elderly female patient in [facility]. SKIN: Warm and dry. No rash. HEENT: Normocephalic. Atraumatic. Pupils equal and round. Mucous membranes pink and moist. CARDIOVASCULAR: Regular rate and rhythm. S1, S2 noted. No murmur appreciated. RESPIRATORY: No accessory muscle use. Clear to auscultation. Breath sounds equal bilaterally. GASTROINTESTINAL: Abdomen soft, non-tender, nondistended. Normoactive bowel sounds x4. MUSCULOSKELETAL: No obvious deformities. Extremities without clubbing, cyanosis , or edema. NEUROLOGICAL: Awake and alert. No obvious cranial nerve deficits. Motor grossly within normal limits. Normal speech. PSYCHIATRIC: Appropriate mood and affect; insight and judgment normal. Medications and IVs Current Medications Medications (Trade) Dose Ordered Sig/Lina Route Start Time Stop Time Status Last Admin Sodium Chloride 1,000 ml @ 100 mls/hr Q10H IV 07/20/17 16:00 07/21/17 02:36 (NS Flush) 2 ml UNSCH PRN IV FLUSH 07/20/17 15:30 07/20/17 23:01 (NS Flush) 2 ml BID IV FLUSH 07/20/17 21:00 07/20/17 21:24 (Tylenol) 650 mg Q4H PRN PO 07/20/17 15:30 (Zofran Inj) 4 mg Q6H PRN IVP 07/20/17 15:30 07/20/17 23:01 (Narcan Inj) 0.4 mg UNSCH PRN IV PUSH 07/20/17 15:30 ([place]-Colace) 1 tab BID PO 07/20/17 21:00 07/21/17 09:36 (Milk Of Magnesia Liq) 30 ml Q12H PRN PO 07/20/17 15:30 (Senokot) 17.2 mg Q12H PRN PO 07/20/17 15:30 (Dulcolax Supp) 10 mg DAILY PRN RECTAL 07/20/17 15:30 (Lactulose Liq) 30 ml DAILY PRN PO 07/20/17 15:30 ([place] 5-325 Mg) 1 tab Q4H PRN PO 07/20/17 16:00 ([place] 5-325 Mg) 2 tab Q4H PRN PO 07/20/17 16:00 07/21/17 09:36 (PROzac) 20 mg DAILY PO 07/21/17 10:00 (Synthroid) 75 mcg DAILY@0600 PO 07/21/17 10:00 (Pravachol) 40 mg HS PO 07/21/17 21:00 UNV (Percocet 10-325 Mg) 1 tab Q6H PRN PO 07/21/17 08:45 UNV Non-Formulary Medication 1 cap TIDPC PO 07/21/17 09:30 UNV A/P Assessment and Plan 72-year-old female with chronic abdominal pain who presented with abdominal pain Acute on chronic intermittent abdominal pain: Patient had multiple admissions prior with negative work up. She was sent to [facility] for further workup , per patient [facility] stated no further workup and for her to see pain management for a celiac plexus block. She stated she was told this was due to chronic pancreatitis. Labs are all normal. Repeat CT abd images reviewed, stable compared to previous exam January2017. -Patient received IV dilaudid overnight, now with symptoms improved, transition back to patient's percocet prn -Patient does have a pain management physician Dr. Gagnon, setting up appt for celiac plexus block. -continue supportive treatment with antiemetics and pain control prn -Symptoms improved, will advance diet to full liquids -recommended outpatient follow up with her surgeon Dr. Akins, retail sales consultant Dr. Castaneda, and GI at [facility] Intractable emesis: Patient stating that she has bilious emesis which she described as white and frothy. -No further vomiting overnight -Zofran prn -Diet advanced Chronic depression, sleep disorder, and creatinine insufficiency, hypothyroidism , herpes on suppression, all other chronic issues. -Continue home medications. DVT prevention: SCDs Discharge Planning 1000hrs: Possible discharge later today if tolerating oral intake. 1400hrs: Patient seen after lunch. She tolerated well. Denies any further abdominal pain or nausea/vomiting. She feels ready for discharge. She plans to follow up with [facility], Dr. Akins, and Dr. Castaneda. Recommended full liquid or soft diet over the next few days. Patient verbalizes understanding. Discharge patient to home Condition on discharge: Improved Soft Diet as tolerated Ad Angie activity Rx written: none Follow-up with primary care physician, GI, and general surgery Gauri Anne PA-C Jul 21, 2017 10:03 am
[2017-07-21] MEDS ORDERED: ZENPEP PO SCH (10:15)
[2017-07-21 11:30] LABS: BICARBONATE 28.3 MEQ/L (21.0-32.0)
[2017-07-21 11:36] VITALS: BP 145/67; PULSE 65; RESP 16; TEMP 98.7; O2SAT 96
--- NOTE | 2017-07-21 13:55 | HHI.DCPOC ---
Discharge Care Plan Diagnosis: (1) Intractable abdominal pain (2) Nausea and vomiting Goals to Promote Your Health * To prevent worsening of your condition and complications * To maintain your health at the optimal level Directions to Meet Your Goals Take your medications as prescribed Follow your dietary instruction Follow activity as directed Keep your appointments as scheduled Take your immunizations and boosters as scheduled If your symptoms worsen call your PCP, if no PCP go to Urgent Care Center or Emergency Room Smoking is Dangerous to Your Health. Avoid second hand smoke Call the 24-hour hour crisis hotline for domestic abuse at Gauri Anne PA-C Jul 21, 2017 13:55
[2017-07-21 15:34] VITALS: BP 121/58; PULSE 59; RESP 18; TEMP 97.8; O2SAT 98
[2017-07-21] MEDS ORDERED: PRAVASTATIN SOD 40 MG TAB PO SCH (21:00)
== END 2017-07-21 15:35 | disposition home or self-care (01) ==
LOC: NEPE 11:04 → NEDA 15:21 → NEPHCDU 17:34
PROVIDERS: ADMIT Internal Medicine; ATTEND Internal Medicine
DX: R10.13 Epigastric pain (principal); R11.2 Nausea with vomiting, unspecified; K86.1 Other chronic pancreatitis; E78.00 Pure hypercholesterolemia, unspecified; R20.2 Paresthesia of skin; G43.909 Migraine, unspecified, not intractable, without status migrainosus; E07.9 Disorder of thyroid, unspecified; Z98.84 Bariatric surgery status
CPT/HCPCS: 74177; 80048; 80053; 80307; 81001; 83605; 83690; 85025; 93005; 96361; 96374; 96376; 99285; G0378; J1170; J2405; J7030; Q9963; Q9967

== ENCOUNTER 2017-08-11 07:58 | Day surgery (SDC) | payer OTHER ==
[~2017-08-11] VITALS: Ht 170.2 cm; Wt 77.3 kg
[~2017-08-11 07:58] MED LIST changes: +LOVA20TA PO; +LOVA40TA PO; +TEMA30CA PO
[2017-08-11 08:16] VITALS: BP 155/71; PULSE 68; RESP 20; TEMP 98.3; O2SAT 95
[2017-08-11] MEDS: SODIUM CHLOR 0.9% 1000 ML IV SCH (08:51)
[2017-08-11] MEDS ORDERED: MIDAZOLAM HCL 5 MG/5 ML VIAL ONE (09:25)
[2017-08-11] MEDS ORDERED: LIDOCAINE HCL 1% 20 ML VIAL ONE (09:33)
--- NOTE | 2017-08-11 09:53 | PD.RAD ---
Post CT Procedure Prog Note Pre Procedure Diagnosis: (1) Recurrent abdominal pain Post Procedure Diagnosis: (1) Recurrent abdominal pain Procedure Date: Aug 11, 2017 Supervising Radiologist: Ayush Parra JR Plan of Activity Patient to Unit: [facility] Additional Comments: Patient placed on CT table in preparation for retroperitoneal bx of induration around celiac. Images obtained showed resolution of this induration. The retroperitoneum is now normal. No bx done. See PACS Report for procedural detail/treatment Jr. Fidel,Ayush Ernst MD Aug 11, 2017 09:53
--- NOTE | 2017-08-11 11:33 | RADRPT ---
EXAM DATE/TIME: 08/11/2017 09:43 [facility] COMPARISON: CT ABDOMEN & PELVIS W CONTRAST, July 20, 2017, 18:29. INDICATIONS : Chronic abdominal pain, nausea and vomiting. ORAL CONTRAST: No oral contrast ingested. RADIATION DOSE: 29.15 CTDIvol (mGy) ; Patient positioning MEDICAL HISTORY : Hernia, hiatal. Hypothyroidism. SURGICAL HISTORY : Gastric bypass. Cholecystectomy.Hysterectomy.Hiatal hernia repair. ENCOUNTER: Initial ACUITY: 1 day PAIN SCALE: 1/10 LOCATION: Bilateral upper quadrant TECHNIQUE: Volumetric scanning of the abdomen was performed. Using automated exposure control and adjustment of the mA and/or kV according to patient size, radiation dose was kept as low as reasonably achievable to obtain optimal diagnostic quality images. DICOM format image data is available electronically for review and comparison. FINDINGS: The patient was placed in the supine position on the CT table and limited images of the abdomen were performed in preparation for a biopsy of the retroperitoneal soft tissues adjacent to the pancreas an d celiac axis. This area shows significant stranding and increase in density on prior studies. The li mited images performed today show resolution of this abnormality within the retroperitoneum. TURELY t he retroperitoneum is normal. A normal fat density is seen. No fluid collection or mass. Nothing to b iopsy. The gallbladder is surgically absent. Surgical clips are seen associated with the stomach. [address] nonobstructing left renal stones observed. CONCLUSION: 1. No biopsy performed as the abnormal appearance of the retroperitoneum on the prior CT scan has res olved and the retroperitoneum has a normal appearance on the current study. Ayush Parra Jr., MD on August 11, 2017 at 11:27 Board Certified Radiologist. This report was verified electronically.
== END 2017-08-11 10:10 | disposition home or self-care (01) ==
LOC: HRAD 07:58 → HRIP 07:59 → HRAD 10:10
PROVIDERS: ATTEND Surgery
DX: R19.00 Intra-abdominal and pelvic swelling, mass and lump, unspecified site (principal); R10.9 Unspecified abdominal pain; R11.2 Nausea with vomiting, unspecified
CPT/HCPCS: 74150; J2250; J3010; J7030

== ENCOUNTER 2018-01-23 11:43 | Emergency (ER) | payer MEDICARE ==
[~2018-01-23] VITALS: Ht 170.2 cm; Wt 79.0 kg
[2018-01-23] MEDS ORDERED: IOHEXOL 350 MG/ML 10 ML VIAL (for RAD DIAG) IVCONTRAST ONE (11:44)
[2018-01-23 12:27] VITALS: BP 176/80; PULSE 68; RESP 19; TEMP 98.4; O2SAT 99
[2018-01-23 13:29] LABS: AUTOMATED NEUTROPHIL # 4.5 TH/MM3 (1.8-7.7); BASOPHIL % 0.4 % (0.0-2.0); EOSINOPHIL # 0.1 TH/MM3 (0-0.4); EOSINOPHIL % 2.1 % (0.0-4.0); HEMATOCRIT 44.1 % (35.0-46.0); HEMOGLOBIN 14.8 GM/DL (11.6-15.3); LYMPH % 17.8 % (9.0-44.0); LYMPHOCYTE # 1.1 TH/MM3 (1.0-4.8); MEAN CELL VOLUME 92.2 FL (80.0-100.0); MEAN CORPUSCULAR HEMOGLOBIN 30.9 PG (27.0-34.0); MEAN CORPUSCULAR HGB CONC 33.5 % (32.0-36.0); MEAN PLATELET VOLUME 8.6 FL (7.0-11.0); MONO % 6.4 % (0.0-8.0); MONOCYTE # 0.4 TH/MM3 (0-0.9); NEUT % 73.3 % (16.0-70.0); PLATELET COUNT 308 TH/MM3 (150-450); RED BLOOD COUNT 4.79 MIL/MM3 (4.00-5.30); RED CELL DISTRIBUTION WIDTH 14.3 % (11.6-17.2); WHITE BLOOD COUNT 6.1 TH/MM3 (4.0-11.0)
[2018-01-23 13:33] LABS: BACTERIA, URINE FEW /hpf; BILIRUBIN, URINE NEG (NEG); BLOOD, URINE TRACE (NEG); CALCIUM OXALATE CRYSTALS,URINE MOD /hpf; GLUCOSE,URINE NEG (NEG); KETONE, URINE NEG (NEG); MUCUS URINE MANY /lpf (OCC); NITRITE,URINE POS (NEG); PH, URINE 5.5 (5.0-8.5); SQUAMOUS EPITHELIAL CELL URINE 8 /hpf (0-5); TRANSITIONAL EPI CELLS, URINE 1 /hpf; URINE COLOR YELLOW (YELLW/STRAW); URINE LEUKOCYTE ESTERASE LARGE (NEG)
[2018-01-23 13:52] LABS: ALBUMIN 3.6 GM/DL (3.4-5.0); AST (GOT) 26 U/L (15-37); BICARBONATE 29.3 MEQ/L (21.0-32.0); BLOOD UREA NITROGEN 10 MG/DL (7-18); CALCIUM 8.8 MG/DL (8.5-10.1); CHLORIDE 105 MEQ/L (98-107); CREATININE 0.59 MG/DL (0.50-1.00); GLOMERULAR FILTRATION RATE 100 ML/MIN (>89); GLUCOSE,RANDOM 105 MG/DL (74-106); SODIUM (NA) 141 MEQ/L (136-145)
[2018-01-23 13:53] LABS: ALT (GPT) 25 U/L (10-53)
[2018-01-23 13:56] LABS: ALKALINE PHOSPHATASE 134 U/L (45-117); TOTAL BILIRUBIN ADULT 0.3 MG/DL (0.2-1.0); TOTAL PROTEIN 7.5 GM/DL (6.4-8.2)
[2018-01-23] MEDS ORDERED: MORPHINE SULFATE 4 MG/ML INJ IV PUSH ONE (16:30)
[2018-01-23] MEDS ORDERED: ONDANSETRON HCL 4 MG/2 ML VIAL IV PUSH ONE (16:30)
--- NOTE | 2018-01-23 16:53 | PD ---
HPI . Abdominal pain Chief Complaint: Abdominal Pain Time Seen by Provider: 16:20 Travel History International Travel<30 days: No Contact w/Intl Traveler<30days: No Traveled to known affect area: No History of Present Illness HPI This patient presents with a chief complaint of abdominal pain. Onset was this morning. She states that the pain was initially slightly relieved by Percocet. She states that she has orders to take morphine for pain unrelieved by Percocet. She states she has had 2 doses of morphine and another dose of Percocet prior to arrival. She states that they are no longer controlling her pain. Pain is rated 9/10. It is associated with nausea and vomiting. She reports a history of chronic pancreatitis. She states that her labs are always normal. I asked her how they knew that she had pancreatitis and she states that she does not know. She states that it was diagnosed at [facility]. [facility] Past Medical History Hx Anticoagulant Therapy: No Arthritis: Yes Autoimmune Disease: No Blood Disorders: No Anxiety: Yes Depression: Yes Heart Rhythm Problems: Yes (PT REPORTS HX OF ARRYTHMIAS) Cancer: No Cardiovascular Problems: No High Cholesterol: Yes Chemotherapy: No Chest Pain: No Congestive Heart Failure: No Cerebrovascular Accident: No Diabetes: No Diminished Hearing: No Endocrine: Yes Gastrointestinal Disorders: Yes (HX REFLUX, BOWEL OBSTRUCTION, POST GASTRIC BYPASS) GERD: No Genitourinary: Yes (MORE FREQUENT UTI) Hepatitis: No Hiatal Hernia: Yes (REPAIRED X 2 BUT RECURRED) Immune Disorder: No Implanted Vascular Access Dvce: Yes Kidney Stones: Yes Musculoskeletal: Yes (ARTHRITIS, NECK PROBLEMS) Neurologic: Yes (NUMBNESS/TINGLING L LEG, HANDS AND FOOT) Psychiatric: Yes Reproductive: No Respiratory: No Immunizations Current: Yes Migraines: Yes Seizures: No Thyroid Disease: Yes Ulcer: No PNEUMOCCOCAL Vaccine (Year): 1 ?: Not Menopausal: Yes Past Surgical History Abdominal Surgery: Yes (GASTRIC BYPASS 2006, CHOLECYSTECTOMY 2011) AICD: No Arteriovenous Shunt: No Body Medical Devices: LEFT KNEE REPLACEMENT Cardiac Surgery: No Cholecystectomy: Yes (December-DR. GARCIA) Ear Surgery: No Endocrine Surgery: No Eye Surgery: No Genitourinary Surgery: No Gynecologic Surgery: No Hysterectomy: Yes Insulin Pump: No Joint Replacement: Yes (L KNEE) Oral Surgery: No Pacemaker: No Thoracic Surgery: No Other Surgery: Yes (R GREAT TOE ) Social History Alcohol Use: No (pt denies) Tobacco Use: No (pt denies) Substance Use: No (pt denies) Allergies-Medications (Allergen,Severity, Reaction): Coded Allergies: enalaprilat (Verified Adverse Reaction, Severe, COUGHING, 07/20/17) Reported Meds & Prescriptions Reported Meds & Active Scripts Active Reported Lovastatin 20 Mg Tab 20 Mg PO DAILY Lovastatin 40 Mg Tab 40 Mg PO HS Temazepam 30 Mg Cap 30 Mg PO HS PRN Percocet (Oxycodone-Acetaminophen) 10-325 mg Tab 1 Tab PO Q6H PRN Zenpep (Pancrelipase) 40,000-136,000-218,000 Units Cap 1 Cap PO TIDPC Zovirax (Acyclovir) 400 Mg Tab 400 Mg PO BID Zofran (Ondansetron HCl) 4 Mg Tab 4 Mg PO Q6HR PRN Prozac (Fluoxetine HCl) 20 Mg Cap 20 Mg PO DAILY Levothyroxine (Levothyroxine Sodium) 75 Mcg Tab 75 Mcg PO DAILY Baclofen 10 Mg Tab 10 Mg PO TID Review of Systems Except as stated in HPI: all other systems reviewed are Neg General / Constitutional: No: Fever, Chills Gastrointestinal: Positive: Nausea, Vomiting, Abdominal Pain Genitourinary: No: Urgency, Frequency, Dysuria Physical Exam Narrative GENERAL: Awake and alert and in no distress. SKIN: warm/dry. HEAD: Normocephalic. EYES: Pupils equal and round. No scleral icterus. No injection or drainage. ENT: No nasal bleeding or discharge. Mucous membranes pink and moist. NECK: Trachea midline. Full range of motion without pain.. CARDIOVASCULAR: Regular rate and rhythm. RESPIRATORY: No accessory muscle use. Clear to auscultation. Breath sounds equal bilaterally. GASTROINTESTINAL: Abdomen soft. Nontender. Bowel sounds present. Nondistended. MUSCULOSKELETAL: No obvious deformities. NEUROLOGICAL: Awake and alert. No obvious cranial nerve deficits. Motor grossly within normal limits. Normal speech. PSYCHIATRIC: Appropriate mood and affect; insight and judgment normal. Data Data Last Documented VS Vital Signs Date Time Temp Pulse Resp B/P (MAP) Pulse Ox O2 Delivery O2 Flow Rate FiO2 01/23/18 17:16 18 01/23/18 16:59 72 150/77 (101) 99 Room Air 01/23/18 12:27 98.4 Orders Orders Complete Blood Count With Diff (01/23/18 12:31) Comprehensive Metabolic Panel (01/23/18 12:31) Urinalysis - C+S If Indicated (01/23/18 12:31) Iv Access Insert/Monitor (01/23/18 12:31) Oxygen Administration (01/23/18 12:31) Oximetry (01/23/18 12:31) Lipase (01/23/18 12:31) Urine Culture (01/23/18 12:46) Ct Abd/Pel W Iv Contrast(Rout) (01/23/18 16:22) Morphine Inj (Morphine Inj) (01/23/18 16:30) Ondansetron Inj (Zofran Inj) (01/23/18 16:30) Ceftriaxone Inj (Rocephin Inj) (01/23/18 17:00) Iohexol 350 Inj (Omnipaque 350 Inj) (01/23/18 11:44) Labs Laboratory Tests Test 01/23/18 12:46 White Blood Count 6.1 TH/MM3 Red Blood Count 4.79 MIL/MM3 Hemoglobin 14.8 GM/DL Hematocrit 44.1 % Mean Corpuscular Volume 92.2 FL Mean Corpuscular Hemoglobin 30.9 PG Mean Corpuscular Hemoglobin Concent 33.5 % Red Cell Distribution Width 14.3 % Platelet Count 308 TH/MM3 Mean Platelet Volume 8.6 FL Neutrophils (%) (Auto) 73.3 % Lymphocytes (%) (Auto) 17.8 % Monocytes (%) (Auto) 6.4 % Eosinophils (%) (Auto) 2.1 % Basophils (%) (Auto) 0.4 % Neutrophils # (Auto) 4.5 TH/MM3 Lymphocytes # (Auto) 1.1 TH/MM3 Monocytes # (Auto) 0.4 TH/MM3 Eosinophils # (Auto) 0.1 TH/MM3 Basophils # (Auto) 0.0 TH/MM3 CBC Comment AUTO DIFF Differential Comment AUTO DIFF CONFIRMED Urine Color YELLOW Urine Turbidity HAZY Urine pH 5.5 Urine Specific [place] 1.024 Urine Protein TRACE mg/dL Urine Glucose (UA) NEG mg/dL Urine Ketones NEG mg/dL Urine Occult Blood TRACE Urine Nitrite POS Urine Bilirubin NEG Urine Urobilinogen LESS THAN 2.0 MG/DL Urine Leukocyte Esterase LARGE Urine RBC 6 /hpf Urine WBC 32 /hpf Urine Squamous Epithelial Cells 8 /hpf Urine Transitional Epithelial Cells 1 /hpf Urine Calcium Oxalate Crystals MOD /hpf Urine Bacteria FEW /hpf Urine Mucus MANY /lpf Microscopic Urinalysis Comment CULTURE INDICATED Blood Urea Nitrogen 10 MG/DL Creatinine 0.59 MG/DL Random Glucose 105 MG/DL Total Protein 7.5 GM/DL Albumin 3.6 GM/DL Calcium Level 8.8 MG/DL Alkaline Phosphatase 134 U/L Aspartate Amino Transf (AST/SGOT) 26 U/L Alanine Aminotransferase (ALT/SGPT) 25 U/L Total Bilirubin 0.3 MG/DL Sodium Level 141 MEQ/L Potassium Level 3.9 MEQ/L Chloride Level 105 MEQ/L Carbon Dioxide Level 29.3 MEQ/L Anion Gap 7 MEQ/L Estimat Glomerular Filtration Rate 100 ML/MIN Lipase 48 U/L MDM Medical Decision Making Medical Screen Exam Complete: Yes Emergency Medical Condition: Yes Differential Diagnosis Differential diagnosis of abdominal pain includes but is not limited to gastritis, pancreatitis, hepatitis, gastroenteritis, constipation, urinary retention, peptic ulcer disease, diverticulitis or appendicitis Narrative Course This patient presents complaining with abdominal pain. She reports a history of pancreatitis. Labs were done in triage and were available to me by the time I saw the patient. CBC & BMP Diagram 01/23/18 12:46 Total Protein 7.5, Albumin 3.6, Calcium Level 8.8, Alkaline Phosphatase 134 H, Aspartate Amino Transf (AST/SGOT) 26, Alanine Aminotransferase (ALT/SGPT) 25, Total Bilirubin 0.3, lipase 46 UA>>large LE, 32 WBCs, few bact. A CT has been ordered to rule out pyelonephritis. Rocephin has also been ordered. CT: 1. Chronic induration with soft tissue density and fluid is again noted in the central mesentery and retroperitoneum. This extends down into the iliac regions and does not appear significantly changed. This is of unclear significance. 2. Small hiatal hernia status post gastric bypass surgery. 3. Moderate diverticulosis again noted. 4. Small nonobstructing left renal calculus again noted. Diagnosis Primary Impression: Recurrent abdominal pain Patient Instructions: Abdominal Pain (ED), General Instructions Disposition: 01 DISCHARGE HOME Condition: Stable Evelin Bravo MD Jan 23, 2018 16:53
[2018-01-23 16:58] VITALS: O2SAT 98
[2018-01-23 16:59] VITALS: BP 150/77; PULSE 72; RESP 18; O2SAT 99
[2018-01-23] MEDS ORDERED: cefTRIAXone INJ 1,000 MG in SODIUM CHLORIDE 0.9% INJ 100 ML IV ONE (17:00)
[2018-01-23 17:16] VITALS: RESP 18
--- NOTE | 2018-01-23 17:39 | RADRPT ---
EXAM DATE/TIME: 01/23/2018 17:19 [place] COMPARISON: CT ABDOMEN & PELVIS W CONTRAST, July 20, 2017, 18:29. INDICATIONS : Patient complains of left abdominal pain with nausea and vomiting. IV CONTRAST: 72 cc Omnipaque 350 (iohexol) IV ORAL CONTRAST: No oral contrast ingested. RADIATION DOSE: 8.3 CTDIvol (mGy) MEDICAL HISTORY : Cardiovascular disease. Hypertension. Pancreatitis. SURGICAL HISTORY : Cholecystectomy. Gastric bypass. Hysterectomy. ENCOUNTER: Initial ACUITY: 1 day PAIN SCALE: 9/10 LOCATION: Left lower quadrant abdomen TECHNIQUE: Volumetric scanning of the abdomen and pelvis was performed. Using automated exposure control and ad justment of the mA and/or kV according to patient size, radiation dose was kept as low as reasonably achievable to obtain optimal diagnostic quality images. DICOM format image data is available electro nically for review and comparison. FINDINGS: LOWER LUNGS: The visualized lower lungs are clear. LIVER: Homogeneous density without lesion. There is no dilation of the biliary tree. Status post cholecyste ctomy. SPLEEN: Normal size without lesion. PANCREAS: Within normal limits. KIDNEYS: Normal in size and shape. There is no mass or hydronephrosis. There is a small nonobstructing left r enal calculus again noted. ADRENAL GLANDS: Within normal limits. VASCULAR: There is no aortic aneurysm. BOWEL/MESENTERY: Postsurgical changes are again noted status post gastric bypass surgery with small hiatal hernia agai n noted. Chronic induration with soft tissue density and/or fluid is again noted in the central mesen neena and retroperitoneum without significant change. The findings extend down into the iliac regions. Moderate diverticulosis is again noted greatest in the sigmoid colon with no focal inflammatory horner ge. No oral contrast was given limiting the sensitivity of the exam. ABDOMINAL WALL: Within normal limits. RETROPERITONEUM: There is no lymphadenopathy. BLADDER: No wall thickening or mass. REPRODUCTIVE: Within normal limits. INGUINAL: There is no lymphadenopathy or hernia. MUSCULOSKELETAL: Within normal limits for patient age. CONCLUSION: 1. Chronic induration with soft tissue density and fluid is again noted in the central mesentery and retroperitoneum. This extends down into the iliac regions and does not appear significantly changed. This is of unclear significance. 2. Small hiatal hernia status post gastric bypass surgery. 3. Moderate diverticulosis again noted. 4. Small nonobstructing left renal calculus again noted. Murphy Mendoza MD on January 23, 2018 at 17:31 Board Certified Radiologist. This report was verified electronically.
[2018-01-23 17:40] VITALS: BP 107/100
[2018-01-23] MEDS ORDERED: CEPH-460 PO (18:24)
[2018-01-23 18:36] VITALS: BP 160/79
== END 2018-01-23 18:55 | disposition home or self-care (01) ==
LOC: NEPC 11:43
DX: N39.0 Urinary tract infection, site not specified (principal); N20.0 Calculus of kidney; K44.9 Diaphragmatic hernia without obstruction or gangrene; E78.00 Pure hypercholesterolemia, unspecified; E07.9 Disorder of thyroid, unspecified; Z98.84 Bariatric surgery status
CPT/HCPCS: 74177; 80053; 81001; 83690; 85025; 87077; 87086; 87186; 96365; 96375; 99284; J0696; J2270; J2405; Q9967

== ENCOUNTER 2018-02-17 19:45 | Emergency (ER) | payer MEDICARE ==
[~2018-02-17] VITALS: Ht 170.2 cm; Wt 80.0 kg
[~2018-02-17 19:45] MED LIST changes: +CEPH-460 PO
[2018-02-17 19:47] VITALS: BP 181/96; PULSE 75; RESP 22; TEMP 98.3; O2SAT 100
[2018-02-17] MEDS ORDERED: MORP1TAB24 PO (20:49)
[2018-02-17 20:50] VITALS: BP 194/95; PULSE 68; RESP 22; O2SAT 100
[2018-02-17] MEDS ORDERED: SODIUM CHLOR 0.9% 1000 ML INJ 1,000 ML IV SCH (21:03)
[2018-02-17] MEDS ORDERED: ONDANSETRON HCL 4 MG/2 ML VIAL IVP ONE (21:15)
[2018-02-17] MEDS ORDERED: MORPHINE SULFATE 4 MG/ML INJ IV PUSH ONE ×2 (21:15→22:00)
[2018-02-17] MEDS ORDERED: SODIUM CHLORIDE 0.9% FLUSH 10 ML FLUSH IV FLUSH PRN (21:15)
--- NOTE | 2018-02-17 21:23 | PD ---
HPI Chief Complaint: Abdominal Pain Time Seen by Provider: 20:54 Travel History International Travel<30 days: No Contact w/Intl Traveler<30days: No Traveled to known affect area: No History of Present Illness HPI 73-year-old female presents to the emergency department for evaluation of abdominal pain. Patient states it is in the epigastric region and radiates to the back. Current pain is 10/10, cramping. Patient reports history of chronic pancreatitis. She sees a straight line edger at [facility]. Patient states the pain started at 4 PM this afternoon. She reports associated vomiting. She is prescribed oxycodone and morphine at home, but states she was unable to take it due to the vomiting. Patient denies any fevers or chills. No chest pain. No diarrhea. She reports history of hysterectomy, cholecystectomy, gastric bypass. Patient denies any other symptoms or complaints at this time. No exacerbating or alleviating factors. Moderate severity PFSH Past Medical History Hx Anticoagulant Therapy: No Arthritis: Yes Autoimmune Disease: No Blood Disorders: No Anxiety: Yes Depression: Yes Heart Rhythm Problems: Yes (PT REPORTS HX OF ARRYTHMIAS) Cancer: No Cardiovascular Problems: No High Cholesterol: Yes Chemotherapy: No Chest Pain: No Congestive Heart Failure: No Cerebrovascular Accident: No Diabetes: No Diminished Hearing: No Endocrine: Yes Gastrointestinal Disorders: Yes (HX REFLUX, BOWEL OBSTRUCTION, POST GASTRIC BYPASS) GERD: No Genitourinary: Yes (MORE FREQUENT UTI) Headaches: No Hepatitis: No Hiatal Hernia: Yes (REPAIRED X 2 BUT RECURRED) Immune Disorder: No Implanted Vascular Access Dvce: Yes Kidney Stones: Yes Medical other: No Musculoskeletal: Yes (ARTHRITIS, NECK PROBLEMS) Neurologic: Yes (NUMBNESS/TINGLING L LEG, HANDS AND FOOT) Psychiatric: Yes Reproductive: No Respiratory: No Immunizations Current: Yes Migraines: Yes Seizures: No Thyroid Disease: Yes Ulcer: No PNEUMOCCOCAL Vaccine (Year): 1 Menopausal: Yes Past Surgical History Abdominal Surgery: Yes (GASTRIC BYPASS 2006, CHOLECYSTECTOMY 2011) AICD: No Arteriovenous Shunt: No Body Medical Devices: LEFT KNEE REPLACEMENT Cardiac Surgery: No Cholecystectomy: Yes (December-DR. GARCIA) Ear Surgery: No Endocrine Surgery: No Eye Surgery: No Genitourinary Surgery: No Gynecologic Surgery: No Hysterectomy: Yes Insulin Pump: No Joint Replacement: Yes (L KNEE) Neurologic Surgery: No Oral Surgery: No Pacemaker: No Thoracic Surgery: No Other Surgery: Yes (R GREAT TOE ) Social History Alcohol Use: No (pt denies) Tobacco Use: No (pt denies) Substance Use: No (pt denies) Allergies-Medications (Allergen,Severity, Reaction): Coded Allergies: enalaprilat (Verified Adverse Reaction, Severe, COUGHING, 02/17/18) Reported Meds & Prescriptions Reported Meds & Active Scripts Active Reported Morphine ER (Morphine Sulfate) 15 Mg Tab 15 Mg PO DAILY Lovastatin 20 Mg Tab 20 Mg PO DAILY Lovastatin 40 Mg Tab 40 Mg PO HS Temazepam 30 Mg Cap 30 Mg PO HS PRN Percocet (Oxycodone-Acetaminophen) 10-325 mg Tab 1 Tab PO Q6H PRN Zovirax (Acyclovir) 400 Mg Tab 400 Mg PO BID Zofran (Ondansetron HCl) 4 Mg Tab 4 Mg PO Q6HR PRN Prozac (Fluoxetine HCl) 20 Mg Cap 20 Mg PO DAILY Levothyroxine (Levothyroxine Sodium) 75 Mcg Tab 75 Mcg PO DAILY Baclofen 10 Mg Tab 10 Mg PO TID Review of Systems Except as stated in HPI: all other systems reviewed are Neg Physical Exam Narrative GENERAL: Well-nourished, well-developed female patient, afebrile. SKIN: Focused skin assessment warm/dry. HEAD: Normocephalic. Atraumatic. EYES: No scleral icterus. No injection or drainage. NECK: Supple, trachea midline. No JVD or lymphadenopathy. CARDIOVASCULAR: Regular rate and rhythm without murmurs, gallops, or rubs. RESPIRATORY: Breath sounds equal bilaterally. No accessory muscle use. Lung sounds are clear to auscultation. GASTROINTESTINAL: Abdomen soft, non-tender, nondistended. No reproducible tenderness to palpation. MUSCULOSKELETAL: No cyanosis, or edema. BACK: Nontender without obvious deformity. No CVA tenderness. Data Data Last Documented VS Vital Signs Date Time Temp Pulse Resp B/P (MAP) Pulse Ox O2 Delivery O2 Flow Rate FiO2 02/17/18 22:08 18 02/17/18 21:49 78 199/96 (130) 100 Room Air 02/17/18 19:47 98.3 Orders Orders Complete Blood Count With Diff (02/17/18 21:03) Comprehensive Metabolic Panel (02/17/18 21:03) Lipase (02/17/18 21:03) Prothrombin Time / Inr (Pt) (02/17/18 21:03) Act Partial Throm Time (Ptt) (02/17/18 21:03) Urinalysis - C+S If Indicated (02/17/18 21:03) Iv Access Insert/Monitor (02/17/18 21:03) Ecg Monitoring (02/17/18 21:03) Oximetry (02/17/18 21:03) Morphine Inj (Morphine Inj) (02/17/18 21:15) Ondansetron Inj (Zofran Inj) (02/17/18 21:15) Sodium Chlor 0.9% 1000 Ml Inj (Ns 1000 M (02/17/18 21:03) Sodium Chloride 0.9% Flush (Ns Flush) (02/17/18 21:15) Morphine Inj (Morphine Inj) (02/17/18 22:00) Urine Culture (02/17/18 21:15) Ceftriaxone Inj (Rocephin Inj) (02/17/18 22:15) Prochlorperazine Inj (Compazine Inj) (02/17/18 22:30) Diphenhydramine Inj (Benadryl Inj) (02/17/18 22:30) Labs Laboratory Tests Test 02/17/18 21:15 White Blood Count 7.0 TH/MM3 Red Blood Count 5.02 MIL/MM3 Hemoglobin 15.3 GM/DL Hematocrit 45.9 % Mean Corpuscular Volume 91.3 FL Mean Corpuscular Hemoglobin 30.4 PG Mean Corpuscular Hemoglobin Concent 33.3 % Red Cell Distribution Width 13.9 % Platelet Count 283 TH/MM3 Mean Platelet Volume 8.6 FL Neutrophils (%) (Auto) 65.3 % Lymphocytes (%) (Auto) 23.3 % Monocytes (%) (Auto) 7.0 % Eosinophils (%) (Auto) 3.7 % Basophils (%) (Auto) 0.7 % Neutrophils # (Auto) 4.6 TH/MM3 Lymphocytes # (Auto) 1.6 TH/MM3 Monocytes # (Auto) 0.5 TH/MM3 Eosinophils # (Auto) 0.3 TH/MM3 Basophils # (Auto) 0.0 TH/MM3 CBC Comment DIFF FINAL Differential Comment Prothrombin Time 9.7 SEC Prothromb Time International Ratio 1.0 RATIO Activated Partial Thromboplast Time 25.5 SEC Urine Color YELLOW Urine Turbidity HAZY Urine pH 7.0 Urine Specific [place] 1.024 Urine Protein TRACE mg/dL Urine Glucose (UA) NEG mg/dL Urine Ketones NEG mg/dL Urine Occult Blood MOD Urine Nitrite POS Urine Bilirubin NEG Urine Urobilinogen LESS THAN 2.0 MG/DL Urine Leukocyte Esterase LARGE Urine RBC 8 /hpf Urine WBC 90 /hpf Urine Squamous Epithelial Cells 7 /hpf Urine Amorphous Sediment RARE Urine Bacteria FEW /hpf Urine Hyaline Casts 2 /lpf Urine Mucus FEW /lpf Microscopic Urinalysis Comment CULTURE INDICATED Blood Urea Nitrogen 14 MG/DL Creatinine 0.63 MG/DL Random Glucose 99 MG/DL Total Protein 7.6 GM/DL Albumin 3.7 GM/DL Calcium Level 9.1 MG/DL Alkaline Phosphatase 126 U/L Aspartate Amino Transf (AST/SGOT) 33 U/L Alanine Aminotransferase (ALT/SGPT) 31 U/L Total Bilirubin 0.3 MG/DL Sodium Level 143 MEQ/L Potassium Level 4.3 MEQ/L Chloride Level 109 MEQ/L Carbon Dioxide Level 29.1 MEQ/L Anion Gap 5 MEQ/L Estimat Glomerular Filtration Rate 93 ML/MIN Lipase 53 U/L [facility] [place] Medical Decision Making Medical Screen Exam Complete: Yes Emergency Medical Condition: Yes Medical Record Reviewed: Yes Differential Diagnosis Chronic abdominal pain versus pancreatitis versus diverticulitis versus UTI Narrative Course 73-year-old female presents to the emergency department for evaluation abdominal pain and vomiting since 4 PM this afternoon. CBC, CMP, lipase, PTT, PT/INR, UA are ordered and pending. Patient is given normal saline 1 L IV bolus , morphine 4 mg IV, Zofran 4 mg IV. I discussed CT scan with the patient. She just recently had a CT scan of the abdomen/pelvis on January 23 which showed chronic induration with soft tissue density and fluid again noted in the central mesentery and retroperitoneum. This extends down into the iliac regions that does not appear significantly changed. This is of unclear significance. Small hiatal hernia status post gastric bypass surgery. Moderate diverticulosis again noted. Small nonobstructing left renal calculus again noted. Patient states she would like to avoid CT scan if she has had multiple CT scans over the past several years. I agree with this. CBC is unremarkable. CMP shows no acute abnormality. Lipase is 53. Coags shows no acute abnormality. UA shows 90 WBC. Patient is given Rocephin 1 g IV for UTI. Patient is given additional morphine 4 mg IV for pain. Patient instructed on need to follow-up her straight line edger for her chronic abdominal pain. Diagnosis Primary Impression: Chronic abdominal pain Referrals: [facility] Pain Management Primary Care Physician Patient Instructions: Abdominal Pain (ED), General Instructions Additional Instructions: Follow up with your straight line edger and pain management physician. Follow-up with a primary care physician. Take Macrobid as directed until gone for UTI Return to the emergency department for any acute worsening of symptoms. Med/Other Pt SpecificInfo: Prescription(s) given, No Change to Meds Scripts Nitrofurantoin Monohydrate Macrocrystals (Macrobid) 100 Mg Cap 100 MG PO BID for Infection for 7 Days, #14 CAP 0 Refills Prov: Reina Martin 02/17/18 Disposition: 01 DISCHARGE HOME Condition: Stable Reina Martin Feb 17, 2018 21:23
[2018-02-17 21:40] LABS: AUTOMATED NEUTROPHIL # 4.6 TH/MM3 (1.8-7.7); BASOPHIL % 0.7 % (0.0-2.0); EOSINOPHIL # 0.3 TH/MM3 (0-0.4); EOSINOPHIL % 3.7 % (0.0-4.0); HEMATOCRIT 45.9 % (35.0-46.0); HEMOGLOBIN 15.3 GM/DL (11.6-15.3); LYMPH % 23.3 % (9.0-44.0); LYMPHOCYTE # 1.6 TH/MM3 (1.0-4.8); MEAN CELL VOLUME 91.3 FL (80.0-100.0); MEAN CORPUSCULAR HEMOGLOBIN 30.4 PG (27.0-34.0); MEAN CORPUSCULAR HGB CONC 33.3 % (32.0-36.0); MEAN PLATELET VOLUME 8.6 FL (7.0-11.0); MONOCYTE # 0.5 TH/MM3 (0-0.9); NEUT % 65.3 % (16.0-70.0); PLATELET COUNT 283 TH/MM3 (150-450); RED BLOOD COUNT 5.02 MIL/MM3 (4.00-5.30); RED CELL DISTRIBUTION WIDTH 13.9 % (11.6-17.2)
[2018-02-17 21:47] LABS: PROTHROMBIN TIME - PATIENT 9.7 SEC (9.8-11.6)
[2018-02-17 21:49] VITALS: BP 199/96; PULSE 78; RESP 21; O2SAT 100
[2018-02-17 21:53] LABS: ALT (GPT) 31 U/L (10-53)
[2018-02-17 21:55] LABS: AMORPHOUS SEDIMENT, URINE RARE; BACTERIA, URINE FEW /hpf; BILIRUBIN, URINE NEG (NEG); BLOOD, URINE MOD (NEG); GLUCOSE,URINE NEG (NEG); HYALINE CAST, URINE 2 /lpf (RARE); KETONE, URINE NEG (NEG); MUCUS URINE FEW /lpf (OCC); NITRITE,URINE POS (NEG); SQUAMOUS EPITHELIAL CELL URINE 7 /hpf (0-5); URINE COLOR YELLOW (YELLW/STRAW); URINE LEUKOCYTE ESTERASE LARGE (NEG)
[2018-02-17 21:56] LABS: ALKALINE PHOSPHATASE 126 U/L (45-117); TOTAL BILIRUBIN ADULT 0.3 MG/DL (0.2-1.0); TOTAL PROTEIN 7.6 GM/DL (6.4-8.2)
[2018-02-17 21:57] LABS: ALBUMIN 3.7 GM/DL (3.4-5.0); AST (GOT) 33 U/L (15-37); BICARBONATE 29.1 MEQ/L (21.0-32.0); BLOOD UREA NITROGEN 14 MG/DL (7-18); CALCIUM 9.1 MG/DL (8.5-10.1); CHLORIDE 109 MEQ/L (98-107); CREATININE 0.63 MG/DL (0.50-1.00); GLOMERULAR FILTRATION RATE 93 ML/MIN (>89); GLUCOSE,RANDOM 99 MG/DL (74-106); SODIUM (NA) 143 MEQ/L (136-145)
[2018-02-17 22:08] VITALS: RESP 18
[2018-02-17] MEDS ORDERED: cefTRIAXone INJ 1,000 MG in SODIUM CHLORIDE 0.9% INJ 100 ML IV ONE (22:15)
[2018-02-17] MEDS ORDERED: PROCHLORPERAZINE INJ 10 MG/2 ML VIAL IV PUSH ONE (22:30)
[2018-02-17] MEDS ORDERED: diphenhydrAMINE HCL 50 MG/ML VIAL IV PUSH ONE (22:30)
[2018-02-17] MEDS ORDERED: MACR100C2 PO (22:44)
[2018-02-17] MEDS ORDERED: KETOROLAC TROMETHAMINE 30 MG/ML (IVP) VIAL IV PUSH ONE (22:45)
[2018-02-17 22:57] VITALS: BP 192/94
== END 2018-02-17 23:13 | disposition home or self-care (01) ==
LOC: NEPC 19:45
DX: R10.9 Unspecified abdominal pain (principal); G89.29 Other chronic pain; E78.00 Pure hypercholesterolemia, unspecified; Z98.84 Bariatric surgery status
CPT/HCPCS: 80053; 81001; 83690; 85025; 85610; 85730; 87077; 87086; 87186; 96361; 96365; 96375; 96376; 99284; J0696; J0780; J1200; J1885; J2270; J2405; J7030